=== PATIENT | male | born 1960 | race Caucasian/White ===

== ENCOUNTER → 2021-03-24 11:02 | Outpatient (CLI) | payer OTHER, SELFPAY ==
--- NOTE | 2021-03-24 | IMM_PTH ---
PATIENT: HANDY ASHLEY LOC: [facility] U#:[id number] AGE/SX: 65/M ROOM: RE03/24/[address]: Dr. Rodolfo Oneal MD : 1960 BED: DIS: SPEC #: [id number] RECD: 03/25/21 13:47 STATUS: BARBARA REQ #: [id number] TESSA: 03/24/21 00:[address]: Rodolfo Oneal DEPT: IMMUNOHISTOCHEMISTRY RECD BY: Lana Mayfield ENTERED: 03/25/21 13:48 SP TYPE: IMMUNO OTHR DR: Dr. Romeo Acevedo III, MD Tissues: C - PROSTATE RIGHT Procedures: P40 (add) 34BE12 (initial) PHYSICIAN & INSTITUTION [place] [address] SPECIMEN INFORMATION: Tissue Source: C - Right prostate, base, core biopsy Clinical Info: Elevated PSA Specimen Number: [id number] CPT code: 37302, 86640 METHODOLOGY: Deparaffinized sections of prefer/formalin-fixed tissue or PAP/DQ stained slides are incubated with monoclonal/polyclonal antibodies/oligonucleotide probes. Localization is made via biotin free immunoperoxidase method. Appropriate controls are performed and reacted as expected. Results on target cell population are indicated in the following table: RESULTS: ANTIBODY / CLONE RESULT Block C P40 (BC28) negative 34BE12 (34BE12) negative These tests were developed and their performance characteristics determined by [facility]. They may not have been cleared or approved by the U.S. Food and Drug Administration. The FDA has determined that such clearance or approval is not necessary. The above immunohistochemical/dualISH markers are ordered and reviewed by the Pathologist. INTERPRETATION: C. Right prostate, base, core biopsy: A minute focus of adenocarcinoma. SUSAN:graham 03/28/2021
--- NOTE | 2021-03-24 08:00 | PROSBIL_PTH ---
PATIENT: HANDY ASHLEY LOC: [facility] U#:[id number] AGE/SX: 65/M ROOM: RE03/24/[address]: Dr. Rodolfo Oneal MD : 1960 BED: DIS: SPEC #: [id number] RECD: 03/24/21 10:59 STATUS: BARBARA KAYLEE #: [id number] TESSA: 03/24/21 08:[address]: Rodolfo Oneal DEPT: SURGICAL PATHOLOGY RECD BY: Migdalia Joy ENTERED: 03/24/21 11:38 SP TYPE: PROST BX ZIA DR: Dr. Romeo Acevedo III, MD Tissues: A - PROSTATE RIGHT B - PROSTATE RIGHT C - PROSTATE RIGHT D - PROSTATE LEFT E - PROSTATE LEFT F - PROSTATE LEFT Procedures: PROSTATE BX HEADER OPERATION: Prostate biopsy PRE-OP DIAGNOSIS: Elevated PSA TISSUE SUBMITTED: A - Right apex, B - Right mid, C - Right base, D - Left apex, E - Left mid, F - Left base MICROSCOPIC DIAGNOSIS A. Right prostate, apex, core biopsy: Prostatic tissue, negative for malignancy. B. Right prostate, mid, core biopsy: Prostatic tissue, negative for malignancy. C. Right prostate, base, core biopsy: A minute focus of adenocarcinoma. Cherry grade: 3+3=6 Number of cores involved: 1/2 Proportion of tissue involved: <5% Perineural invasion: Not identified. Greatest tumor length: <0.1 cm See comment. D. Left prostate, apex, core biopsy: Prostatic tissue, negative for malignancy. E. Left prostate, mid, core biopsy: Prostatic tissue, negative for malignancy. F. Left prostate, base, core biopsy: Prostatic tissue, negative for malignancy. SJ:graham 03/25/2021 COMMENT C. Immunohistochemistry ([id number]) supports the above diagnosis. Case has been reviewed in consultation with Dr. Hodgson who concurs with the above diagnosis. IDC:AM MICROSCOPIC DESCRIPTION Slides are reviewed. GROSS DESCRIPTION A - Received is one container designated prostate, right apex. The specimen consists of two elongated fragments of light schreiber-white soft tissue each measuring 1 cm in length and 0.1 cm in diameter. The specimen is totally submitted in one cassette. B - Received is one container designated prostate, right mid. The specimen consists of two elongated fragments of light schreiber-white soft tissue each measuring 1.5 cm in length and 0.1 cm in diameter. The specimen is totally submitted in one cassette. C - Received is one container designated prostate, right base. The specimen consists of two elongated fragments of light schreiber-white soft tissue each measuring 1 cm in length and 0.1 cm in diameter. The specimen is totally submitted in one cassette. D - Received is one container designated prostate, left apex. The specimen consists of two elongated fragments of light schreiber-white soft tissue each measuring 1 cm in length and 0.1 cm in diameter. The specimen is totally submitted in one cassette. E - Received is one container designated prostate, left mid. The specimen consists of two elongated fragments of light schreiber-white soft tissue each measuring 1 cm in length and 0.1 cm in diameter. The specimen is totally submitted in one cassette. F - Received is one container designated prostate, left base. The specimen consists of two elongated fragments of light schreiber-white soft tissue each measuring 1 cm in length and 0.1 cm in diameter. The specimen is totally submitted in one cassette. / AM:rg 03/24/21 TC:0 CPT: 95694 x6
== END ==
PROVIDERS: PCP Family Medicine; Referring Provider Urology; Visit Provider Urology
DX: R97.20 Elevated prostate specific antigen [PSA] (principal)
CPT/HCPCS: 88305; 88341; 88342; G0416

== ENCOUNTER → 2021-06-23 | Outpatient (CLI) | payer OTHER, SELFPAY | END | disposition home or self-care (01) | LOC: LABSPEC 12:32 | PROVIDERS: Visit Provider Physician Assistant Medical | DX: Z11.52 Encounter for screening for COVID-19 (principal); U07.1 COVID-19 | CPT/HCPCS: 87635; U0003; U0005 ==

== ENCOUNTER 2023-05-11 07:07 | Day surgery (SDC) | payer OTHER, SELFPAY ==
--- NOTE | 2023-05-11 | GASB_PTH ---
PATIENT: HANDY ASHLEY LOC: EN U#:[id number] AGE/SX: 63/M ROOM: RE05/11/[address]: Dr. Antoine Acevedo MD : 1960 BED: DIS: 05/11/2023 SPEC #: [id number] RECD: 05/11/23 10:52 STATUS: BARBARA KAYLEE #: [id number] TESSA: 05/11/23 00:[address]: Antoine Acevedo DEPT: SURGICAL PATHOLOGY RECD BY: Parker Guevara ENTERED: 05/11/23 10:52 SP TYPE: Gastric Bx OTHR DR: Dr. Jarad Oliver MD Tissues: A - Duodenum, NOS B - Gastric mucous membrane C - Stomach, NOS D - Esophageal mucous membrane E - Ascending colon Procedures: Special Stain Group II Surgery Specimen Level IV Alcian Blue/PAS (control) HEADER OPERATION: Colonoscopy, EGD, biopsy PRE-OP DIAGNOSIS: GERD, screening TISSUE SUBMITTED: A - Duodenum biopsy, B - Antrum biopsy for H. pylori, C - Greater curvature polyp biopsy, D - Distal esophagus biopsy, E - Ascending polyp biopsy MICROSCOPIC DIAGNOSIS A. Duodenum, biopsy: No pathologic change. B. Gastric antrum, biopsy: Chronic gastritis. See comment. C. Greater curvature polyp, biopsy: Fundic gland polyp. D. Distal esophagus, biopsy: Gastroesophageal junctional mucosa with mild chronic inflammation. Focal changes of reflux. No evidence of goblet cell metaplasia. See comment. E. Ascending colon polyp, biopsy: Fragments of tubular adenoma. AM:graham 05/14/2023 COMMENT B. The results of immunohistochemistry for Helicobacter pylori will be reported separately ([id number]). MICROSCOPIC DESCRIPTION Slides are reviewed. GROSS DESCRIPTION A - Received in fixative is one container labeled with the patient's name and designated duodenum biopsy. The specimen consists of one irregular fragment of light schreiber soft tissue that measures 0.5 x 0.5 x 0.1 cm. The specimen is totally submitted in one cassette. B - Received in fixative is one container labeled with the patient's name and designated antrum biopsy. The specimen consists of one irregular fragment of light schreiber soft tissue that measures 0.5 x 0.5 x 0.1 cm. The specimen is totally submitted in one cassette. C - Received in fixative is one container labeled with the patient's name and designated greater curvature polyp. The specimen consists of one irregular fragment of light schreiber soft tissue that measures 0.6 x 0.6 x 0.1 cm. The specimen is totally submitted in one cassette. D - Received in fixative is one container labeled with the patient's name and designated distal esophagus. The specimen consists of two irregular fragments of light schreiber soft tissue that in aggregate measure 0.7 x 0.3 x 0.1 cm. The specimen is totally submitted in one cassette. E - Received in fixative is one container labeled with the patient's name and designated ascending colon polyp. The specimen consists of two irregular fragments of light schreiber soft tissue that in aggregate measure 0.8 x 0.2 x 0.1 cm. The specimen is totally submitted in one cassette. / AM:graham 05/11/2023 TC:3 CPT: 91457 x5, 05296
[2023-05-11 07:32] VITALS: BP 131/78; PULSE 74; RESP 16; TEMP 36.3; O2SAT 97; BMI 28.9
[2023-05-11] MEDS: Lactated Ringers 1,000 ML 15 ML IV (07:35)
--- NOTE | 2023-05-11 07:55 | HP.PCM_ITS ---
History and Physical Date of Admission: 05/11/23 isit Reasons: UPPER/LOWER SCOPE Chief Complaint: upper and lower scope Is patient in pain?: No Allergies No Known Allergies Allergy (Verified 03/29/23 14:43) Medications famotidine 20 mg tablet 20 mg PO DAILY 03/01/23 [History Confirmed 03/29/23] losartan 100 mg-hydrochlorothiazide 25 mg tablet 1 tab PO DAILY 03/01/23 [History Confirmed 03/29/23] PFSH Medical History GERD (gastroesophageal reflux disease) Hiatal hernia HTN (hypertension) MVP (mitral valve prolapse) Surgical History Hx of colonoscopy Hx of esophagogastroduodenoscopy Family History (Updated 03/29/23 @ 14:41 by Odette Mendoza) Mother Breast cancer Social History (Updated 03/29/23 @ 14:42 by Odette Mendoza) household members: spouse current occupational status: employed Smoking Status: Never smoker substance use type: does not use HPI HPI HPI: 62-year-old gentleman is referred for consideration of an endoscopic evaluation per Dr. Jarad Oliver and a written compromise surgical consult recommendations will return to him. The patient has been troubled by persistent cough and gastroesophageal reflux disease despite a head of bed elevation at night. He is also in need of a screening colonoscopy. 10 years prior he had a colonoscopy which apparently was normal and an EGD also performed at that time demonstrated a hiatal hernia and GERD. He is on famotidine and losartan hydrochlorothiazide medications. The patient notes occasional breakthrough episodes of reflux disease. Has not unexpected weight loss. No nausea or vomiting. No bright red blood per rectum or melena. He notes that his brother has a history of prostate cancer but no history of colon cancer in the family. He has not had any acute change in bowel habits. No ongoing primary health issues of concern. No history of DVT. ROS General General: No weight change, appetite, fatigue, colon cancer, breast cancer or weakness HEENT HEENT: Yes eye surgery; No difficulty swallowing, eye injury, swollen glands or hoarseness Endo Endocrine: No thyroid disease, diabetes mellitus, thyroid cancer, Hair loss, heat intolerance or cold intolerance Skin Skin: No rash or changing moles Musc Musculoskeletal: No back problems, arthritis, rheumatoid arthritis, gout or joint pain Cardio Cardiovascular: Yes murmur; No pacemaker, heart disease, atrial fibrillation, high blood pressure, heart attack, heart stent, palpitations, shortness of breat with exertion or chest pain Psych Psychiatric: No depression, anxiety or hearing voices Resp Respiratory: No shortness of breath, No sleep apnea, No cough, No COPD, No asthma, No emphysema and No wheezing Gastro Gastrointestinal: No abdominal pain, No nausea or vomiting, No diarrhea, No constipation, No blood in stool, Yes acid reflux, No hemorrhoids, No ulcers, No gallbladder problem and No black,tarry stools Gilbert Hematologic: No blood thinners, No blood disorders, No bleeding, No anemia and No blood clots Neuro Neurologic: No system reviewed and no additional complaints, except as documented, No as per HPI, No abnormal gait, No abnormal hearing, No abnormal movements, No abnormal speech, No behavioral changes, No burning sensations, No confusion, No convulsions, No disequilibrium, No dizziness, No localized weakness, No frequent falls, No headache(s), No lack of coordination, No loss of vision, No memory loss, No numbness, No other visual disturbances, No radicular pain, No restless legs, No sensory deficit, No syncope, No tingling, No tremor(s), No weakness and No other Exam Const General: cooperative, healthy appearing, comfortable and no acute distress [facility] Head: normal to inspection Eyes General: appearance normal, both eyes and all related structures Neck Neck: normal visual inspection Chest Chest palpation & inspection: normal inspection of the chest Resp Effort & Inspection: normal respiratory effort Auscultation: clear to auscultation bilaterally Cardio Rate: regular rate Rhythm: regular rhythm GI Inspection: normal to inspection Palpation: soft and no hepatosplenomegaly Musc Cervical Spine: normal cervical lordosis Skin General: no rashes or lesions noted Neuro General: patient alert, patient awake and patient oriented x3 Extrem General: no calf tenderness Psych Appearance: grossly normal Assessment and Plan Assessment and Plan (1) Screening for intestinal cancer: Status: Acute (2) GERD (gastroesophageal reflux disease): Status: Acute Qualifiers: Esophagitis presence: esophagitis presence not specified Qualified Code(s): K21.9 - Gastro-esophageal reflux disease without esophagitis Plan: I recommended the patient a combined esophagogastroduodenoscopy possible biopsy and colonoscopy possible biopsy or polypectomy as indicated. He is aware of the technique, benefit, risk, alternatives. He had an opportunity to ask and have questions answered. We will schedule and proceed at his discretion. I appreciate the opportunity of assisting with the surgical care. Copy: Dr. Jarad Acevedo M.D., F.A.C.S. I have examined the patient and the H&P has been reviewed. There are no clinical changes since date of exam. Antoine Acevedo M.D., F.A.C.S.
--- NOTE | 2023-05-11 08:15 | IMM_PTH ---
PATIENT: HANDY ASHLEY LOC: EN U#:[id number] AGE/SX: 63/M ROOM: RE05/11/[address]: Dr. Antoine Acevedo MD : 1960 BED: DIS: 05/11/2023 SPEC #: [id number] RECD: 05/11/23 14:51 STATUS: BARBARA REQ #: [id number] TESSA: 05/11/23 08:[address]: Antoine Acveedo DEPT: IMMUNOHISTOCHEMISTRY RECD BY: Lana Mayfield ENTERED: 05/11/23 14:53 SP TYPE: IMMUNO OTHR DR: Dr. Jarad Oliver MD Tissues: A - Stomach, NOS Procedures: H Pylori (initial) PHYSICIAN & [place] [address] SPECIMEN INFORMATION: Tissue Source: B - Antrum Clinical Info: GERD, screening Specimen Number: [id number] CPT code: 87480 METHODOLOGY: Deparaffinized sections of prefer/formalin-fixed tissue or PAP/DQ stained slides are incubated with monoclonal/polyclonal antibodies/oligonucleotide probes. Localization is made via biotin free immunoperoxidase method. Appropriate controls are performed and reacted as expected. Results on target cell population are indicated in the following table: RESULTS: ANTIBODY / CLONE RESULT Block B H Pylori (polyclonal) negative These tests were developed and their performance characteristics determined by [facility]. They may not have been cleared or approved by the U.S. Food and Drug Administration. The FDA has determined that such clearance or approval is not necessary. The above immunohistochemical/dualISH markers are ordered and reviewed by the Pathologist. INTERPRETATION: B. Antrum, biopsy: Negative for Helicobacter pylori organisms. AM:graham 05/14/2023
--- NOTE | 2023-05-11 08:42 | OP.CCLET_ITS ---
05/11/2023 Jarad Oliver [address] [place] [address] Re : Upper GI endoscopy procedure for Alejandro Bonilla Dear Dr. Oliver This procedure was performed on Thursday, May 11, 2023. My impressions and recommendations are as follows: Impressions : - LA Grade A reflux esophagitis with no bleeding. Biopsied Hiatal hernia. - Erythematous mucosa in the antrum. Biopsied. - Erythematous duodenopathy. Biopsied. - A few gastric polyps. Resected and retrieved. Recommendations : - Return to my office in 1 week. - Continue present medications. My findings are described in the full procedure note, which is enclosed. If I can be of further assistance, please feel free to contact me at Doctor phone number(s): Work: . Sincerely, Antoine Acevedo MD 05/11/2023 8:42:09 AM This report has been signed electronically.
--- NOTE | 2023-05-11 08:42 | OP.EGD_ITS ---
Patient Name: Alejandro Bonilla Procedure Date: 05/11/2023 7:55 AM Date of : 1960 Age: 63 Procedure: Upper GI endoscopy Indications: Esophageal reflux Providers: Antoine Acevedo MD Referring MD: Antoine Acevedo MD Medicines: See the Anesthesia note for documentation of the administered medications Complications: No immediate complications. Procedure: Pre-Anesthesia Assessment: - Prior to the procedure, a History and Physical was performed, and patient medications and allergies were reviewed. The patient's tolerance of previous anesthesia was also reviewed. The risks and benefits of the procedure and the sedation options and risks were discussed with the patient. All questions were answered, and informed consent was obtained. Prior Anticoagulants: The patient has taken no anticoagulant or antiplatelet agents. ASA Grade Assessment: II - A patient with mild systemic disease. After reviewing the risks and benefits, the patient was deemed in satisfactory condition to undergo the procedure. After obtaining informed consent, the endoscope was passed under direct vision. Throughout the procedure, the patient's blood pressure, pulse, and oxygen saturations were monitored continuously. The was introduced through the mouth, and advanced to the second part of duodenum. The upper GI endoscopy was accomplished without difficulty. The patient tolerated the procedure well. Scope In: 8:05:50 AM Scope Out: 8:14:00 AM Total Procedure Duration Time 0 hours 8 minutes 10 seconds Findings: LA Grade A (one or more mucosal breaks less than 5 mm, not extending between tops of 2 mucosal folds) esophagitis with no bleeding was found 40 cm from the incisors. Biopsies were taken with a cold forceps for histology. Diffuse mildly erythematous mucosa without bleeding was found in the gastric antrum. Biopsies were taken with a cold forceps for histology. Diffuse mildly erythematous mucosa without active bleeding and with no stigmata of bleeding was found in the duodenal bulb. Biopsies were taken with a cold forceps for histology. A few sessile polyps with no stigmata of recent bleeding were found on the greater curvature of the stomach. The polyp was removed with a cold biopsy forceps. Resection and retrieval were complete. A 2 cm hiatal hernia was present. Impression: - LA Grade A reflux esophagitis with no bleeding. Biopsied Hiatal hernia. - Erythematous mucosa in the antrum. Biopsied. - Erythematous duodenopathy. Biopsied. - A few gastric polyps. Resected and retrieved. Recommendation: - Return to my office in 1 week. - Continue present medications. Procedure Code(s): --- Professional --- 04978, Esophagogastroduodenoscopy, flexible, transoral; with biopsy, single or multiple Diagnosis Code(s): --- Professional --- K21.00, Gastro-esophageal reflux disease with esophagitis, without bleeding K31.89, Other diseases of stomach and duodenum K31.7, Polyp of stomach and duodenum CPT copyright 2021 [employer]. All rights reserved. The codes documented in this report are preliminary and upon isotope technician review may be revised to meet current compliance requirements. Antoine Acveedo MD 05/11/2023 8:42:09 AM This report has been signed electronically. Number of Addenda: 0 Note Initiated On: 05/11/2023 7:55 AM
--- NOTE | 2023-05-11 08:44 | OP.COLON_ITS ---
Patient Name: Aleajndro Bonilla Procedure Date: 05/11/2023 8:14 AM Date of : 1960 Age: 63 Procedure: Colonoscopy Indications: Screening for colorectal malignant neoplasm Providers: Antoine Acevedo MD Referring MD: Antoine Acevedo MD Medicines: See the Anesthesia note for documentation of the administered medications Patient Profile: Last Colonoscopy: 10 years ago. Complications: No immediate complications. Procedure: Pre-Anesthesia Assessment: - Prior to the procedure, a History and Physical was performed, and patient medications and allergies were reviewed. The patient's tolerance of previous anesthesia was also reviewed. The risks and benefits of the procedure and the sedation options and risks were discussed with the patient. All questions were answered, and informed consent was obtained. Prior Anticoagulants: The patient has taken no anticoagulant or antiplatelet agents. ASA Grade Assessment: II - A patient with mild systemic disease. After reviewing the risks and benefits, the patient was deemed in satisfactory condition to undergo the procedure. After I obtained informed consent, the scope was passed under direct vision. Throughout the procedure, the patient's blood pressure, pulse, and oxygen saturations were monitored continuously. The was introduced through the anus and advanced to the cecum, identified by appendiceal orifice and ileocecal valve. The colonoscopy was performed without difficulty. The patient tolerated the procedure well. The quality of the bowel preparation was good. The ileocecal valve and the appendiceal orifice were photographed. Scope In: 8:15:36 AM Scope Withdrawal Time 0 hours 15 minutes 4 seconds Scope Out: 8:35:18 AM Total Procedure Duration Time 0 hours 19 minutes 42 seconds Findings: Hemorrhoids were found on perianal exam. The digital rectal exam was normal. Pertinent negatives include normal prostate (size, shape, and consistency). A 6 mm polyp was found in the distal ascending colon. The polyp was sessile. The polyp was removed with a cold biopsy forceps. Resection and retrieval were complete. The exam was otherwise without abnormality. Impression: - Hemorrhoids found on perianal exam. - One 6 mm polyp in the distal ascending colon, removed with a cold biopsy forceps. Resected and retrieved. - The examination was otherwise normal. Recommendation: - Discharge patient to home. - Resume previous diet. - Continue present medications. - Repeat colonoscopy in 5 years for surveillance based on pathology results. - Telephone my office for pathology results in 1 week. Procedure Code(s): --- Professional --- 04411, Colonoscopy, flexible; with biopsy, single or multiple Diagnosis Code(s): --- Professional --- Z12.11, Encounter for screening for malignant neoplasm of colon K64.9, Unspecified hemorrhoids D12.2, Benign neoplasm of ascending colon CPT copyright 2021 [employer]. All rights reserved. The codes documented in this report are preliminary and upon construction contractor review may be revised to meet current compliance requirements. Antoine Acevedo MD 05/11/2023 8:44:27 AM This report has been signed electronically. Number of Addenda: 0 Note Initiated On: 05/11/2023 8:14 AM
[2023-05-11 08:45] VITALS: BP 127/77; BP 131/78; PULSE 72; RESP 16; TEMP 37.3; O2SAT 96
--- NOTE | 2023-05-11 08:45 | OP.CCLET_ITS ---
05/11/2023 Jarad Oliver [address] [place] [address] Re : Colonoscopy procedure for Alejandro Bonilla Dear Dr. Oliver This procedure was performed on Thursday, May 11, 2023. My impressions and recommendations are as follows: Impressions : - Hemorrhoids found on perianal exam. - One 6 mm polyp in the distal ascending colon, removed with a cold biopsy forceps. Resected and retrieved. - The examination was otherwise normal. Recommendations : - Discharge patient to home. - Resume previous diet. - Continue present medications. - Repeat colonoscopy in 5 years for surveillance based on pathology results. - Telephone my office for pathology results in 1 week. My findings are described in the full procedure note, which is enclosed. If I can be of further assistance, please feel free to contact me at Doctor phone number(s): Work: . Sincerely, Antoine Acevedo MD 05/11/2023 8:44:27 AM This report has been signed electronically.
[2023-05-11 08:50] VITALS: BP 121/78; BP 131/78; PULSE 70; RESP 16; O2SAT 98
[2023-05-11 08:55] VITALS: BP 119/70; BP 131/78; PULSE 68; RESP 16; O2SAT 98
[2023-05-11 09:00] VITALS: BP 118/70; BP 131/78; PULSE 68; RESP 16; TEMP 36.7; O2SAT 96
[2023-05-11 10:03] VITALS: BP 131/78
== END 2023-05-11 10:05 | disposition home or self-care (01) ==
LOC: EN 07:08 → AC 07:10
PROVIDERS: PCP Internal Medicine; Referring Provider Internal Medicine; Visit Provider Surgery
PROC: 0DJD8ZZ Inspection of Lower Intestinal Tract, Via Natural or Artificial Opening Endoscopic (ICD-10-PCS; CPT 45378; principal; 2023-05-11 08:10)
DX: Z12.11 Encounter for screening for malignant neoplasm of colon (principal); K31.7 Polyp of stomach and duodenum; K63.5 Polyp of colon; K64.9 Unspecified hemorrhoids; I10 Essential (primary) hypertension; K44.9 Diaphragmatic hernia without obstruction or gangrene; Z79.899 Other long term (current) drug therapy; K31.89 Other diseases of stomach and duodenum; K21.00 Gastro-esophageal reflux disease with esophagitis, without bleeding; K29.50 Unspecified chronic gastritis without bleeding
CPT/HCPCS: 43239; 45380; 88305; 88313; 88342; J7120; J2405

== ENCOUNTER → 2023-06-01 | Day surgery (SDC) | payer OTHER, SELFPAY ==
[2023-06-01 10:04] VITALS: BP 165/100; PULSE 70; RESP 16; TEMP 36.1; O2SAT 99
[2023-06-01] MEDS: Lidocaine Jelly 2% 20 ML Syringe (URO-JET) 1 APPLIC (10:15)
== END | disposition home or self-care (01) ==
LOC: EN 09:50
PROVIDERS: PCP Internal Medicine; Referring Provider Surgery; Visit Provider Surgery
PROC: F00ZJWZ Instrumental Swallowing and Oral Function Assessment using Swallowing Equipment (ICD-10-PCS; CPT 43235; principal; 2023-06-01 09:55)
DX: K21.9 Gastro-esophageal reflux disease without esophagitis (principal)
CPT/HCPCS: 91010

== ENCOUNTER 2023-08-14 05:19 | Day surgery (SDC) | payer OTHER, SELFPAY ==
--- NOTE | 2023-08-07 07:24 | EKG12_ITS ---
Test Reason : PRE OP Blood Pressure : / mmHG Vent. Rate : 064 BPM Atrial Rate : 064 BPM P-R Int : 162 ms QRS Dur : 140 ms QT Int : 434 ms P-R-T Axes : 036 -10 008 degrees QTc Int : 447 ms Normal sinus rhythm Right bundle branch block Abnormal ECG Confirmed by Raul Gallardo ([id number]), editorial assistant MILES VILLAFUERTE ([id number]) on 08/07/2023 1:50:21 PM Referred By: Antoine Acevedo Confirmed By:Raul Gallardo
[2023-08-07 07:55] LABS: Hematocrit 49.1 % (40-54); Hemoglobin 16.1 g/dL (13.0-16.5); Mean Corp Hgb Conc 32.8 g/dL (32-36); Mean Corpuscular Hgb 28.9 pg (27.0-32.0); Mean Corpuscular Volume 88.2 fL (80-94); Mean Platelet Vol. 10.6 fl (6.2-12.0); Platelet Count 181 K/mm3 (150-450); RBC Distribution Width CV 13.4 % (11.6-14.6); Red Blood Count 5.57 M/mm3 (4.6-6.2); White Blood Count 5.7 K/mm3 (4.4-11.0)
[2023-08-07 08:20] LABS: Anion Gap 5 (5-15); BUN 22 mg/dL (7-18); BUN/Creat Ratio 18.6 RATIO (10-20); Calcium,Total 9.5 mg/dL (8.5-10.1); Chloride 107 mmol/L (98-107); Creatinine, Serum 1.18 mg/dL (0.70-1.30); EST Glomerular Filtration Rate 66 mL/min (>60); Est Glom Filt Rate - Afr Amer 80 mL/min (>60); Glucose 154 mg/dL (74-106); Potassium 3.5 mmol/L (3.5-5.1); Sodium Level 142 mmol/L (136-145)
[2023-08-14] VITALS (11 sets, daily range): BP systolic 154–192; BP diastolic 79–99; PULSE 67–95; RESP 12–20; TEMP 35.9–37.1; O2SAT 90–98; BMI 30.2
--- OUTSIDE RECORDS SUMMARY | 2023-08-14 05:24 | XMS RPT_ITS | CCD ---
Author Name Unknown Address [address] [facility] [address] [place] [address] Organization [facility] Care Team Providers Care Underwriting Clerk Name Role Phone Jarad Jones MD Primary Care Provider [phone] JARAD JONES Attending Unavailable JARAD JONES Primary Care Unavailable JARAD JONES Attending Unavailable JARAD JONES Primary Care Unavailable POWER CASAS Referring Unavailable JARAD JONES Primary Care Unavailable POWER CASAS Referring Unavailable JARAD JONES Primary Care Unavailable Jarad Jones MD Primary Care Provider [phone] Medications Current Medications Medication Drug Class(es) Dates Sig (Normalized) Sig (Original) hydroCHLOROthiazide 25 mg oral tablet (4 sources) Thiazide Diuretic Start: 2 End: 3 take 1 tablet by mouth once daily hydroCHLOROthiazide (HYDRODIURIL, ESIDRIX) 25 mg tablet Indications: Primary hypertension Take 1 tablet by mouth once daily. 90 tablet 1 03/15/2022 07/27/2022 Discontinued (Changing Therapy/Dosage Form) Completed/Discontinued Medications Medication Drug Class(es) Dates Sig (Normalized) Sig (Original) famotidine 20 mg oral tablet (11 sources) Histamine-2 Receptor Antagonist take 1 tablet by mouth every other day famotidine (PEPCID) 20 mg tablet Take 20 mg by mouth. Take 1 tablet every other day. 0 Active Problems Active Problems Problem Classification Problem Date Documented Date Episodic/Chronic Cancer of prostate (14 sources) Malignant tumor of prostate; Translations: [Malignant neoplasm of prostate] Onset: 03-24-2021 07-27-2021 Chronic Conduction disorders (13 sources) Complete right bundle branch block; Translations: [Unspecified right bundle-branch block] Onset: 01-25-2017 07-27-2021 Chronic Disorders of lipid metabolism (15 sources) Mixed hyperlipidemia; Translations: [Mixed hyperlipidemia] Onset: 11-28-2021 Chronic Esophageal disorders (13 sources) Gastroesophageal reflux disease; Translations: [Gastro-esophageal reflux disease without esophagitis] Onset: 04-20-2008 04-20-2008 Chronic Essential hypertension (17 sources) Essential hypertension; Translations: [Essential (primary) hypertension] Onset: 11-28-2021 Chronic Heart valve disorders (18 sources) Mitral valve regurgitation; Translations: [Nonrheumatic mitral (valve) insufficiency] Onset: 08-25-2021 09-07-2021 Chronic Hyperplasia of prostate (13 sources) Benign prostatic hyperplasia; Translations: [Benign prostatic hyperplasia without lower urinary tract symptoms] Onset: 07-24-2011 07-24-2011 Chronic Other male genital disorders (5 sources) Induratio penis plastica; Translations: [Induration penis plastica] Onset: 09-21-2017 09-21-2017 Chronic Other nutritional; endocrine; and metabolic disorders (10 sources) Cholesterol level - finding; Translations: [Lipoprotein deficiency] Onset: 02-17-2013 02-17-2013 Chronic Other nutritional; endocrine; and metabolic disorders (15 sources) Obese class I; Translations: [Obesity, unspecified] Onset: 07-27-2021 07-27-2021 Chronic Other screening for suspected conditions (not mental disorders or infectious disease) (8 sources) Raised prostate specific antigen; Translations: [Elevated prostate specific antigen [PSA]] Onset: 02-17-2013 02-17-2013 Episodic Past or Other Problems Problem Classification Problem Date Documented Da te Episodic/Chronic Heart valve disorders (6 sources) Heart murmur; Translations: [Cardiac murmur, unspecified] Onset: 07-27-2021 07-27-2021 Episodic Other and unspecified benign neoplasm (2 sources) Tubular adenoma of colon; Translations: [Benign neoplasm of colon, unspecified] Onset: 03-26-2023 08-01-2023 Episodic Other circulatory disease (6 sources) Elevated blood pressure; Translations: [Elevated blood-pressure reading, without diagnosis of hypertension] Onset: 07-27-2021 07-27-2021 Episodic Other male genital disorders (5 sources) Cyst of epididymis; Translations: [Cyst of epididymis] Onset: 09-21-2017 09-21-2017 Episodic Residual codes; unclassified (5 sources) Family history of prostate cancer; Translations: [Family history of malignant neoplasm of prostate] Onset: 12-17-2014 12-17-2014 Episodic Results Test Name Value Interpretation Reference Range Facil ity Vital Signs Date Time Vital Sign Value Performing Clinician Faci lity 08-13-2023 14:07-0500 Body weight 98.43 kg Power Casas MD Work Phone: [facility] 08-13-2023 14:07-0500 Diastolic blood pressure 83 mm[Hg] Power Casas MD Work Phone: [facility] 08-13-2023 14:07-0500 Heart rate 79 /min Power Casas MD Work Phone: [facility] 08-13-2023 14:07-0500 SaO2% (BldA) [Mass fraction] 97 % Power Casas MD Work Phone: [facility] 08-13-2023 14:07-0500 Systolic blood pressure 135 mm[Hg] Power Casas MD Work Phone: [facility] 01-25-2023 08:48-0400 Body weight 96.16 kg Jarad Jones MD Work Phone: [facility] 01-25-2023 08:48-0400 Diastolic blood pressure 68 mm[Hg] Jarad Jones MD Work Phone: [facility] 01-25-2023 08:48-0400 Heart rate 64 /min Jarad Jones MD Work Phone: [facility] 01-25-2023 08:48-0400 Respiratory rate 16 /min Jarad Jones MD Work Phone: [facility] 01-25-2023 08:48-0400 Systolic blood pressure 128 mm[Hg] Jarad Jones MD Work Phone: [facility] 07-31-2022 14:13-0500 Body weight 99.79 kg Power Casas MD Work Phone: [facility] 07-31-2022 14:13-0500 Diastolic blood pressure 76 mm[Hg] Power Casas MD Work Phone: [facility] 07-31-2022 14:13-0500 Heart rate 94 /min Power Casas MD Work Phone: [facility] 07-31-2022 14:13-0500 SaO2% (BldA) [Mass fraction] 97 % Power Casas MD Work Phone: [facility] 07-31-2022 14:13-0500 Systolic blood pressure 130 mm[Hg] Power Casas MD Work Phone: [facility] 07-27-2022 08:28-0500 Diastolic blood pressure 79 mm[Hg] Jarad Jones MD Work Phone: [facility] 07-27-2022 08:28-0500 Heart rate 70 /min Jarad Jones MD Work Phone: [facility] 07-27-2022 08:28-0500 Systolic blood pressure 130 mm[Hg] Jarad Jones MD Work Phone: [facility] 07-27-2022 08:05-0500 Body height 177.8 cm Jarad Jones MD Work Phone: [facility] 07-27-2022 08:05-0500 Body temperature 96.8 [degF] Jarad Jones MD Work Phone: [facility] 07-27-2022 08:05-0500 Body weight 99.34 kg Jarad Jones MD Work Phone: [facility] 07-27-2022 08:05-0500 Respiratory rate 16 /min Jarad Jones MD Work Phone: [facility] 01-23-2022 12:41-0400 Diastolic blood pressure 82 mm[Hg] Jarad Jones MD Work Phone: [facility] 01-23-2022 12:41-0400 Heart rate 76 /min Jarad Jones MD Work Phone: [facility] 01-23-2022 12:41-0400 Systolic blood pressure 138 mm[Hg] Jarad Jones MD Work Phone: [facility] 01-23-2022 12:36-0400 Body temperature 97.3 [degF] Jarad Jones MD Work Phone: [facility] 01-23-2022 12:36-0400 Body weight 97.7 kg Jarad Jones MD Work Phone: [facility] 01-23-2022 12:36-0400 Respiratory rate 16 /min Jarad Jones MD Work Phone: [facility] 11-28-2021 08:26-0400 Body weight 99.34 kg Lupe Jayde PSYCH ARNP.EXHIBIT SPECIALIST Work Phone: [facility] 11-28-2021 08:26-0400 Diastolic blood pressure 72 mm[Hg] Lupe Jayde PSYCH ARNP.EXHIBIT SPECIALIST Work Phone: [facility] 11-28-2021 08:26-0400 Heart rate 77 /min Lupe Jayde PSYCH ARNP.EXHIBIT SPECIALIST Work Phone: [facility] 11-28-2021 08:26-0400 Respiratory rate 20 /min Lupe Jayde PSYCH ARNP.EXHIBIT SPECIALIST Work Phone: [facility] 11-28-2021 08:26-0400 Systolic blood pressure 154 mm[Hg] Lupe Jayde PSYCH ARNP.EXHIBIT SPECIALIST Work Phone: [facility] Encounters Encounter Date Encounter Type Care Provider Facility Start: 08-13-2023 End: 08-13-2023 Patient encounter procedure Power Casas MD Work Phone: Cardiology Procedures Date Procedure Procedure Detail Performing Clinician Start: 05-11-2023 Colonoscopy Jarad Solis MD Work Phone: Start: 08-08-2021 Lipid 1996 panel - S bear or Plasma Jarad Jones MD Work Phone: Start: 07-27-2021 Adult depression scr eening assessment Power Casas MD Work Phone: Start: 03-26-2013 Colonoscopy Power lucero MD Work Phone: Plan of Treatment Date Care Activity Detail Author Start: 05-11-2028 Screening for malign ant neoplasm of colon [facility] Start: 08-08-2026 Lipid panel Lipid Screening [facility] Start: 08-08-2026 LIPID SCREEN LIPID SCREEN [facility] Start: 08-08-2026 PROSTATE CANCER SCRE ENING DISCUSSION PROSTATE CANCER SCREENING DISCUSSION [facility] Start: 08-08-2026 Prostate specific an tigen measurement Prostate Cancer Screening Discussion [facility] Start: 04-08-2025 Urine microalbumin profile [facility] Start: 08-08-2024 DIABETES SCREEN DIABETES SCREEN [facility] Start: 08-08-2024 Diabetes Screening Diabetes Screenin g [facility] Start: 08-01-2024 Annual PCP Team Derivatives Trader bradley Disease Visit Annual PCP Team Chronic Disease Visit [facility] Start: 01-26-2024 ANNUAL PCP TEAM CUSTOMER TRAINER BRADLEY DISEASE VISIT ANNUAL PCP TEAM CHRONIC DISEASE VISIT [facility] Start: 01-26-2024 BP CONTROLLED (<130/80) BP CONTROLLE D (<130/80) [facility] Start: 12-23-2023 Influenza vaccination Influenza Vacc ine (#1) [facility] Immunizations Immunization Date Immunization Notes Care Provider Fa cility 10-23-2022 zoster vaccine recombinant Jarad Jones MD Work Phone: [facility] Work Phone: 07-06-2022 zoster vaccine recombinant Jarad Jones MD Work Phone: [facility] Work Phone: 04-25-2021 influenza, seasonal, injectable Power Casas MD Work Phone: [facility] Work Phone: 04-25-2021 influenza virus vaccine, unspecified formulation Jarad Jones MD Work Phone: [facility] 04-09-2017 influenza, seasonal, injectable Power Casas MD Work Phone: [facility] 04-08-2015 tetanus toxoid, redu giselle diphtheria toxoid, and acellular pertussis vaccine, adsorbed Power Casas MD Work Phone: [facility] 07-07-1991 diphtheria and tetan us toxoids, adsorbed for pediatric use Power Casas MD Work Phone: [facility] Payers Date Payer Category Payer Private Health Insurance [id number] 2013 Private Health Insurance [employer] A ETNA CHOICE POS II [id number] 2013-Present [phone] [address] [place] [address] POS [id number] 2013 Private Health Insurance [id number] 2013 Private Health Insurance [id number] Social History Date Type Detail Facility Start: 09-21-2017 End: 07-27-2022 Tobacco smoking status NHIS Never smoked tobacco [facility] Start: 09-07-2021 End: 08-13-2023 Alcohol intake Current drinker of alcohol (finding) [facility] Start: 07-27-2021 End: 07-27-2022 History SDOH Alcohol Frequency 4 [facility] Start: 07-27-2021 End: 07-27-2022 History SDOH Alcohol Std Drinks 1 [facility] Start: 07-27-2021 End: 07-27-2022 History SDOH Social Connections Phone 3 [facility] Start: 07-27-2021 History SDOH Social Connections Get Together 5 [facility] Start: 07-27-2021 History SDOH Social Connections Membership 2 [facility] Start: 07-27-2021 End: 07-27-2022 History SDOH Physical Activity MPS 7 [facility] Start: 1960 Sex Assigned At Not on file [facility] Start: 08-29-2021 End: 01-23-2022 Exposure to SARS-CoV-2 (event) Not sure [facility] Start: 09-21-2017 End: 07-27-2022 Tobacco use and exposure Smokeless tobacco non-user [facility] Start: 07-27-2022 End: 01-25-2023 Alcohol intake [facility] Start: 07-27-2022 Alcohol Comment 3 x per week [facility] Start: 07-27-2021 End: 01-25-2023 Social connection and isolation panel [facility] Do you belong to any clubs or organizations such as cheondoism groups, unions, fraternal or athletic groups, or school groups? No [facility] Are you now , , , , never or living with a partner? [facility] How often to you hav e a drink containing alcohol? 2-3 time sa week [facility] Work Phone: How many standard dr inks containing alcohol do you have on a typical day? 1 or 2 [facility] Work Phone: How often do you hav e 6 or more drinks on 1 occasion? Never [facility] Work Phone: How hard is it for y ou to pay for the very basics like food, housing, medical care, and heating Not hard at all [facility] Do you feel stress - tense, restless, nervous, or anxious, or unable to sleep at night because your mind is troubled all the time - these days [OSQ] Not at all [facility] Work Phone: (I/We) worried wheth er (my/our) food would run out before (I/we) got money to buy more. Never true [facility] Clinical Notes 04-08-2015 to 08-13-2023 Power Casas MD - 08/13/2023 2:29 PM ESTTelephone Encounter - Melani Ross RN - 08/03/2023 4:13 PM ESTPatient Jarad Gonzalez MD - 01/25/2023 9:03 AM EDT Note Date & Type Note Facility 08-13-2023 History of Present illness Narrative Images from the original note were not included. Power Casas MD Interventional Cardiology [address] [place] [phone] [id number] Chief Complaint Patient presents with: Follow Up HISTORY OF PRESENT ILLNESS: Mr. Bonilla is a 63 year old male seen in my office for follow-up patient established history of severe mitral regurgitation with mitral valve prolapse P2 prolapse and 4+ MR Patient is completely asymptomatic denies symptoms sign of congestive heart failure no angina physical activity and tolerance is excellent echocardiography revealed severe mitral regurgitation with regurgitant orifice area of 0.62 cm Left ventricular end-diastolic dimension is 4.8 cm and left ventricular end systolic diameter is 3.1 cm Patient underwent stress test July 2022 exercised on Kamran protocol for 7 minutes and 34 seconds with no evidence of ischemia adequate heart rate achieved 88% of maximum predicted heart rate normal left ventricular size with mild LVH Patient is undergoing surgery tomorrow for hiatal hernia he is cleared for his surgery with moderate risk of cardiac event To be watchful for any evidence of congestive heart failure and fluid assessment and management Cardiac Risk Factors age (male over 45, female over 55), hypertension PAST MEDICAL HISTORY Diagnosis Date BPH (benign prostatic hyperplasia) 07/24/2011 Complete right bundle branch block (RBBB) 01/25/2017 COVID-19 06/25/2021 and 06/08/2020 Elevated PSA 2018 Epididymal cyst 09/21/2017 HTN (hypertension) Hypertensive heart disease Low HDL (under 40) 02/17/2013 Mitral valve insufficiency 08/25/2021 Mitral valve regurgitation 08/25/2021 Mixed hyperlipidemia 11/28/2021 Obesity 07/24/2011 Obesity, Class I, BMI 30-34.9 07/27/2021 Peyronie disease 09/21/2017 2015 Prostate cancer (HCC) 03/24/2021 Tubular adenoma of colon 03/26/2023 PAST SURGICAL HISTORY Procedure Laterality Date COLONOSCOPY FLX DX W/COLLJ SPEC WHEN PFRMD 03/26/2013 Colonoscopy ESOPHAGOGASTRODUODENOSCOPY TRANSORAL DIAGNOSTIC 03/26/2013 EGD PROSTATE BIOPSY 02/2021 VASECTOMY UNI/BI SPX W/POSTOP SEMEN EXAMS FAMILY HISTORY Problem Relation Age of Onset Breast Cancer Mother Dementia Mother Diabetes Father 80 other (colon polyps) Father Prostate Cancer Brother None Brother Social History Tobacco Use Smoking status: Never Smokeless tobacco: Never Substance Use Topics Alcohol use: Yes Alcohol/week: 3.0 standard drinks of alcohol Types: 3 Standard drinks or equivalent per week Comment: 3 x per week Drug use: No ALLERGIES No Known Allergies Medications: Current Outpatient Medications Medication Sig Dispense Refill losartan-hydroCHLOROthiazide (HYZAAR) 100-25 mg per tablet Take 1 tablet by mouth once daily. 90 tablet 3 omeprazole (PRILOSEC) 40 mg capsule Take 40 mg by mouth. Take 1 tablet every other day. famotidine (PEPCID) 20 mg tablet Take 20 mg by mouth. Take 1 tablet every other day. Current Facility-Administered Medications Medication Dose Route Frequency Provider Last Rate Last Admin perflutren lipid microspheres 1.3 mL in NaCl (PF) 0.9% 10 mL injection (DEFINITY) INTRAVENOUS DIRECTED PRN Power Casas MD sodium chloride 0.9 % (flush) 10 mL (BD POSIFLUSH) 10 mL INTRAVENOUS DIRECTED PRPower Ash MD Review of Systems Constitutional: Negative for chills, diaphoresis, fever, malaise/fatigue and weight loss. HENT: Negative for congestion, ear discharge, ear pain, hearing loss, nosebleeds, sinus pain, sore throat and tinnitus. Eyes: Negative for blurred vision, double vision, photophobia, pain, discharge and redness. Respiratory: Negative for cough, hemoptysis, sputum production, shortness of breath, wheezing and stridor. Cardiovascular: Negative for chest pain, palpitations, orthopnea, claudication, leg swelling and PND. Gastrointestinal: Negative for abdominal pain, blood in stool, constipation, diarrhea, heartburn, melena, nausea and vomiting. Genitourinary: Negative for dysuria, flank pain, frequency, hematuria and urgency. Musculoskeletal: Negative for back pain, falls, joint pain, myalgias and neck pain. Skin: Negative for itching and rash. Neurological: Negative for dizziness, tingling, tremors, sensory change, speech change, focal weakness, seizures, loss of consciousness, weakness and headaches. Endo/Heme/Allergies: Negative for environmental allergies and polydipsia. Does not bruise/bleed easily. Psychiatric/Behavioral: Negative for depression, hallucinations, memory loss, substance abuse and suicidal ideas. The patient is not nervous/anxious and does not have insomnia. Physical Examination: Vitals:BP 135/83 Pulse 79 Wt 217 lb (98.4kg) SpO2 97% BP w/Orthostatic Vitals Date and Time Orthostatic BP Orthostatic Pulse BP Pulse BP Position BP Site BP Cuff Size 08/13/23 1407 -- -- 135/83 79 Sitting Right Arm Large Adult Last 2 Encounter Wt Readings: Date: Wt: 08/13/2023 98.4 kg (217 lb) 08/01/2023 97.5 kg (215 lb) Physical Exam Constitutional: General: He is not in acute distress. Appearance: He is not diaphoretic. HENT: Head: Normocephalic and atraumatic. Right Ear: External ear normal. Left Ear: External ear normal. Nose: Nose normal. Mouth/Throat: Pharynx: Oropharynx is clear. Eyes: General: Right eye: No discharge. Left eye: No discharge. Conjunctiva/sclera: Conjunctivae normal. Pupils: Pupils are equal, round, and reactive to light. Cardiovascular: Rate and Rhythm: Normal rate and regular rhythm. Heart sounds: S1 normal and S2 normal. Murmur heard. No friction rub. No gallop. No S3 or S4 sounds. Pulmonary: Effort: Pulmonary effort is normal. No respiratory distress. Breath sounds: Normal breath sounds. No wheezing or rales. Chest: Chest wall: No tenderness. Musculoskeletal: General: Normal range of motion. Cervical back: Normal range of motion and neck supple. Skin: General: Skin is warm and dry. Neurological: Mental Status: He is alert and oriented to person, place, and time. Psychiatric: Mood and Affect: Mood normal. Thought Content: Thought content normal. Pertinent Labs: CBC: No results found for: HB , HCT , WBC , PLT BMP: No results found for: GLUC , K , NA , CHLOR , CO2 , CREAT , BUN , ANION , CA INR: Lipid Profile: Cholesterol, Total Date Value Ref Range Status 03/14/2014 196 100 - 199 mg/dL Final HDL Cholesterol Date Value Ref Range Status 03/14/2014 35 (L) >45 mg/dL Final LDL Cholesterol Date Value Ref Range Status 03/14/2014 136 (H) 60 - 129 mg/dL Final Triglyceride Date Value Ref Range Status 03/14/2014 125 30 - 149 mg/dL Final Hemoglobin A1C: No results found for: HGBA1C TSH: No results found for: TSHREFL Prior Cardiac Testing Echo Assessment and Plan: 63 years old gentleman with severe mitral regurgitation due to P2 mitral valve prolapse ASSESSMENT/PLAN: 1. Mitral valve disorder - ICD9: 394.9, ICD10: I05.9 (primary diagnosis) Severe mitral regurgitation Remained asymptomatic Continue clinical observation repeat echo and next few weeks - ECHO - PERFLUTREN LIPID MICROSPHERES 1.1 MG/ML INJECTION IN NS 10 ML - SODIUM CHLORIDE 0.9 % (FLUSH) INJECTION SYRINGE 2. Preoperative examination - ICD9: V72.84, ICD10: Z01.818 Stable cardiac conditions cleared for his hiatal hernia surgery with mild risk of cardiac event Close assessment of fluid management signs and symptoms of congestive heart failure Power Casas MD Follow up plannin months Electronically signed by Power Casas MD on August 13, 2023, 2:29 PM The above note was partially created using a dictation recognition software. A reasonable attempt has been made to correct any errors. documented in this encounter [facility] 08-03-2023 Miscellaneous Notes Patient has been identified by name and date of : Yes, Melani Ross RN Date 08/03/2023 Time 4:14 pm Patient phones for refill(s): Requested Prescriptions Pending Prescriptions Disp Refills losartan-hydroCHLOROthiazide (HYZAAR) 100-25 mg per tablet 90 tablet 3 Sig: Take 1 tablet by mouth once daily. Date of last office visit in primary care: 08/01/2023 Date of next office visit in primary care: 01/30/2024 Patient reports because of insurance prescription needs to be sent to [facility]. Please advise. Thank you. Melani Ross RN. documented in this encounter [facility] 08-01-2023 Note HNO ID: [id number] Author: JARAD JONES MD Service: ? Author Type: Physician Type: Progress Notes Filed: 08/01/2023 09:42 Note Text: This note was created using NoteWriter. Subjective Patient presents with: Yearly Exam F/U 6 months Alejandro Bonilla is a 63 year old male. He felt well, and his hypertension was historically controlled. He had further workup of GERD and hiatal hernia by Dr. Acevedo, and he was scheduled for laparoscopic Silvestre funduplication this . He had his EGD and colonoscopy last March, and a tubular adenoma of the colon was found. [facility] He sees Dr. Casas for cardiology, Dr. Oneal for urology, Dr. Brumfield for dermatology, Dr. Geller for ophthalmology, and Dr. Acevedo for surgery. Review of Systems Constitutional: Negative for fatigue, fever and unexpected weight change. HENT: Negative for congestion and sore throat. Eyes: Negative for visual disturbance. Respiratory: Positive for cough. Negative for chest tightness, shortness of breath and wheezing. From acid reflux Cardiovascular: Negative for chest pain, palpitations and leg swelling. Gastrointestinal: Negative for abdominal pain, constipation, diarrhea, nausea and vomiting. Genitourinary: Negative for difficulty urinating and dysuria. Musculoskeletal: Negative for arthralgias and back pain. Skin: Negative for color change. Neurological: Negative for dizziness and headaches. PAST MEDICAL HISTORY Diagnosis Date BPH (benign prostatic hyperplasia) 07/24/2011 Complete right bundle branch block (RBBB) 01/25/2017 COVID-19 06/25/2021 and 06/08/2020 Elevated PSA 2018 Epididymal cyst 09/21/2017 HTN (hypertension) Hypertensive heart disease Low HDL (under 40) 02/17/2013 Mitral valve insufficiency 08/25/2021 Mitral valve regurgitation 08/25/2021 Mixed hyperlipidemia 11/28/2021 Obesity 07/24/2011 Obesity, Class I, BMI 30-34.9 07/27/2021 Peyronie disease 09/21/2017 2015 Prostate cancer (HCC) 03/24/2021 Tubular adenoma of colon 03/26/2023 PAST SURGICAL HISTORY Procedure Laterality Date COLONOSCOPY FLX DX W/COLLJ SPEC WHEN PFRMD 03/26/2013 Colonoscopy ESOPHAGOGASTRODUODENOSCOPY TRANSORAL DIAGNOSTIC 03/26/2013 EGD PROSTATE BIOPSY 02/2021 VASECTOMY UNI/BI SPX W/POSTOP SEMEN EXAMS FAMILY HISTORY Problem Relation Age of Onset Breast Cancer Mother Dementia Mother Diabetes Father 80 other (colon polyps) Father Prostate Cancer Brother None Brother Social History Tobacco Use Smoking status: Never Smokeless tobacco: Never Substance Use Topics Alcohol use: Yes Alcohol/week: 3.0 standard drinks of alcohol Types: 3 Standard drinks or equivalent per week Comment: 3 x per week Drug use: No ALLERGIES No Known Allergies Current Outpatient Medications Medication Sig omeprazole (PRILOSEC) 40 mg capsule Take 40 mg by mouth. Take 1 tablet every other day. famotidine (PEPCID) 20 mg tablet Take 20 mg by mouth. Take 1 tablet every other day. losartan-hydroCHLOROthiazide (HYZAAR) 100-25 mg per tablet Take 1 tablet by mouth once daily. No current facility-administered medications for this visit. Objective BP 137/82 (BP Site: Left Arm, BP Position: Sitting, BP Cuff Size: Large Adult) Pulse 69 Temp 36.6 ?C (97.8 ?F) (Temporal) Ht 178.4 cm (5' 10.25 ) Wt 97.5 kg (215 lb) BMI 30.63 kg/m? Physical Exam Constitutional: Appearance: Normal appearance. HENT: Head: Normocephalic. Nose: Nose normal. Eyes: Extraocular Movements: Extraocular movements intact. Conjunctiva/sclera: Conjunctivae normal. Neck: Vascular: No carotid bruit. Cardiovascular: Pulses: Normal pulses. Heart sounds: S1 normal. Murmur heard. Systolic murmur is present with a grade of 1/6. Diastolic murmur is present with a grade of 1/4. Pulmonary: Effort: No respiratory distress. Breath sounds: No wheezing or rales. Abdominal: General: There is no distension. Palpations: Abdomen is soft. There is no mass. Tenderness: There is no abdominal tenderness. Musculoskeletal: General: Normal range of motion. Right lower leg: No edema. Left lower leg: No edema. Lymphadenopathy: Cervical: No cervical adenopathy. Neurological: General: No focal deficit present. Mental Status: He is alert. Depression Screening PHQ-2 Score 08/01/2023 0 Depression screening tool completed and reviewed. Based on score and interview, patient is not at risk for depression. Screening tool discussed with patient, and I recommended no further intervention at this time. Test results pertinent to today's visit were reviewed and discussed with the patient. Assessment and Plan 1. Routine medical exam - ICD9: V70.0, ICD10: Z00.00 (primary diagnosis) - Counseled on healthy diet and regular exercise - Vaccines recommended: Prevnar 20, RSV vaccine. Patient will review VIS. 2. Primary hypertension - ICD9: 401.9, ICD10: I10 - Controlled - C (more content not included)... [facility] 01-25-2023 Note HNO ID: [id number] Author: Jarad Jones MD Service: ? Author Type: Physician Type: Progress Notes Filed: 01/25/2023 9:26 AM Note Text: This note was created using [employer]. Subjective Alejandro Bonilla is a 62 year old male. He was doing well. Hypertension was controlled. Mitral insufficiency was asymptomatic and monitored. He will be due for colonoscopy this fall. He will call back with decision to do open access here in [facility] or be referred to another endoscopist. Review of Systems Constitutional: Negative for fatigue. Respiratory: Negative for shortness of breath. Cardiovascular: Negative for chest pain, palpitations and leg swelling. Gastrointestinal: Negative. Genitourinary: Negative for difficulty urinating. Neurological: Negative for dizziness and headaches. ACTIVE PROBLEM LIST Esophageal Reflux Bph (Benign Prostatic Hyperplasia) Prostate Cancer (Hcc) Obesity, Class I, Bmi 30-34.9 Complete Right Bundle Branch Block (Rbbb) Mitral Valve Insufficiency Primary Hypertension Mixed Hyperlipidemia Social History Tobacco Use Smoking status: Never Smokeless tobacco: Never Substance Use Topics Alcohol use: Yes Alcohol/week: 3.0 standard drinks of alcohol Types: 3 Standard drinks or equivalent per week Comment: 3 x per week Drug use: No Current Outpatient Medications Medication Sig losartan-hydroCHLOROthiazide (HYZAAR) 100-25 mg per tablet Take 1 tablet by mouth once daily. famotidine (PEPCID) 20 mg tablet Take 20 mg by mouth once daily. Current Facility-Administered Medications Medication Dose Route Frequency perflutren lipid microspheres 1.3 mL in NaCl (PF) 0.9% 10 mL injection (DEFINITY) INTRAVENOUS DIRECTED PRN sodium chloride 0.9 % (flush) 10 mL (BD POSIFLUSH) 10 mL INTRAVENOUS DIRECTED PRN perflutren lipid microspheres 1.3 mL in NaCl (PF) 0.9% 10 mL injection (DEFINITY) INTRAVENOUS DIRECTED PRN sodium chloride 0.9 % (flush) 10 mL (BD POSIFLUSH) 10 mL INTRAVENOUS DIRECTED PRN perflutren lipid microspheres 1.3 mL in NaCl (PF) 0.9% 10 mL injection (DEFINITY) INTRAVENOUS DIRECTED PRN sodium chloride 0.9 % (flush) 10 mL (BD POSIFLUSH) 10 mL INTRAVENOUS DIRECTED PRN Objective BP 128/68 (BP Site: Left Arm, BP Position: Sitting, BP Cuff Size: Large Adult) Pulse 64 Resp 16 Wt 96.2 kg (212 lb) BMI 30.42 kg/m? Physical Exam Cardiovascular: Rate and Rhythm: Normal rate and regular rhythm. Heart sounds: Murmur heard. Systolic murmur is present with a grade of 2/6. Diastolic murmur is present. Comments: LSB and apex. Pulmonary: Breath sounds: Normal breath sounds. Musculoskeletal: Right lower leg: No edema. Left lower leg: No edema. Neurological: Mental Status: He is alert. Assessment and Plan 1. Primary hypertension - ICD9: 401.9, ICD10: I10 (primary diagnosis) - Controlled - CBC 2. Special screening for malignant neoplasms, colon - ICD9: V76.51, ICD10: Z12.11 Options discussed, and he will call with decision. Open access here or referral to non [facility] endoscopist. 3. Mixed hyperlipidemia - ICD9: 272.2, ICD10: E78.2 - Controlled - COMP METABOLIC PANEL - LIPID PANEL BASIC 4. Mitral valve insufficiency, unspecified etiology - ICD9: 424.0, ICD10: I34.[address] Casas. 5. Prostate cancer (HCC) - ICD9: 185, ICD10: C61 [address] Dr[address] Oneal. - PSA/PROSTSPECAG DIAG Jarad Jones MD [facility] 01-25-2023 Note HNO ID: [id number] Author: Kenna Boyer LPN Service: ? Author Type: ? Type: Progress Notes Filed: 01/25/2023 9:26 AM Note Text: [facility] OPEN ACCESS QUESTIONNAIRE 1. Are you currently having any new or unusual stomach/gastrointestinal issues at this time such as constipation, diarrhea, abdominal pain, rectal bleeding etc?No 2. Do you have any difficulty swallowing? No 3. Do you have any implanted devices such as a defibrillator, pacemaker, cardiac stents or deep brain stimulator? No 4. Do you take any Blood thinners such as Coumadin, Plavix, Xarelto, Eliquis, Brilinta or any other blood thinner? No 5. Do you have any new or past cardiac (heart) or pulmonary (lung) issues? No 6. Do you currently use any oxygen? No 7. Have you been hospitalized in the past 6 weeks? No 8. Have you had difficulty with anesthesia previously re: Difficult intubation? No Other difficulty or allergic reaction to anesthesia other than post op N/V? No 9. Are you on dialysis? No 10. Do you have any bleeding disorders such as hemophilia or Factor 5? No 11. Are you an Insulin Dependent Diabetic? No IF ANY OF THE TOP ELEVEN QUESTIONS ARE ANSWERED YES PLEASE SCHEDULE THE PATIENT FOR A CONSULT. advised 12. Is the patient's BMI 40 or greater? No:There is no height or weight on file to calculate BMI.. 13. Do you take any narcotics or anti-Anxiety medications? No 14. Do you use any illegal or recreational drugs including marijuana? No 15. Any alcohol use: YES: What type of alcohol, how much and how often do you drink? : Two (2) twelve ounce beers couple times a month 16. Have you been diagnosed with chronic liver disease such as hepatitis or cirrhosis? No 17. Do you have a seizure disorder? No 18. Do you have ulcerative colitis or Crohn's disease? No 19. Are you or could you be ? No 20. Any other important health information we should be made aware of prior to your colonoscopy? No To be completed by LIP: Did patient have MAC anesthesia with a previous endoscopy procedure? No Patient appropriate for Open Access Colonoscopy: Yes: appropriate for Open Access Procedure Checklist: Prior to closing the encounter: Complete questionnaire: Yes Confirm Prep order has been Ordered/Pended: Yes. Patient's procedure could be delayed if not given the script for the prep. Please ensure the prep is escripted to pharmacy or printed. Instructions for the prep will print upon filing or pending this smartset. Please send all open access questionnaires to [facility] Pool #[id number] [facility] 01-25-2023 Instructions Jarad Jones MD - 01/25/2023 9:[address] Mead. Dr. Hawkins. documented in this encounter [facility] 01-25-2023 History of Present illness Narrative This note was created using [employer]. Subjective Alejandro Bonilla is a 62 year old male. He was doing well. Hypertension was controlled. Mitral insufficiency was asymptomatic and monitored. He will be due for colonoscopy this fall. He will call back with decision to do open access here in [facility] or be referred to another endoscopist. Review of Systems Constitutional: Negative for fatigue. Respiratory: Negative for shortness of breath. Cardiovascular: Negative for chest pain, palpitations and leg swelling. Gastrointestinal: Negative. Genitourinary: Negative for difficulty urinating. Neurological: Negative for dizziness and headaches. ACTIVE PROBLEM LIST Esophageal Reflux Bph (Benign Prostatic Hyperplasia) Prostate Cancer (Hcc) Obesity, Class I, Bmi 30-34.9 Complete Right Bundle Branch Block (Rbbb) Mitral Valve Insufficiency Primary Hypertension Mixed Hyperlipidemia Social History Tobacco Use Smoking status: Never Smokeless tobacco: Never Substance Use Topics Alcohol use: Yes Alcohol/week: 3.0 standard drinks of alcohol Types: 3 Standard drinks or equivalent per week Comment: 3 x per week Drug use: No Current Outpatient Medications Medication Sig losartan-hydroCHLOROthiazide (HYZAAR) 100-25 mg per tablet Take 1 tablet by mouth once daily. famotidine (PEPCID) 20 mg tablet Take 20 mg by mouth once daily. Current Facility-Administered Medications Medication Dose Route Frequency perflutren lipid microspheres 1.3 mL in NaCl (PF) 0.9% 10 mL injection (DEFINITY) INTRAVENOUS DIRECTED PRN sodium chloride 0.9 % (flush) 10 mL (BD POSIFLUSH) 10 mL INTRAVENOUS DIRECTED PRN perflutren lipid microspheres 1.3 mL in NaCl (PF) 0.9% 10 mL injection (DEFINITY) INTRAVENOUS DIRECTED PRN sodium chloride 0.9 % (flush) 10 mL (BD POSIFLUSH) 10 mL INTRAVENOUS DIRECTED PRN perflutren lipid microspheres 1.3 mL in NaCl (PF) 0.9% 10 mL injection (DEFINITY) INTRAVENOUS DIRECTED PRN sodium chloride 0.9 % (flush) 10 mL (BD POSIFLUSH) 10 mL INTRAVENOUS DIRECTED PRN Objective BP 128/68 (BP Site: Left Arm, BP Position: Sitting, BP Cuff Size: Large Adult) Pulse 64 Resp 16 Wt 96.2 kg (212 lb) BMI 30.42 kg/m Physical Exam Cardiovascular: Rate and Rhythm: Normal rate and regular rhythm. Heart sounds: Murmur heard. Systolic murmur is present with a grade of 2/6. Diastolic murmur is present. Comments: LSB and apex. Pulmonary: Breath sounds: Normal breath sounds. Musculoskeletal: Right lower leg: No edema. Left lower leg: No edema. Neurological: Mental Status: He is alert. Assessment and Plan 1. Primary hypertension - ICD9: 401.9, ICD10: I10 (primary diagnosis) - Controlled - CBC 2. Special screening for malignant neoplasms, colon - ICD9: V76.51, ICD10: Z12.11 Options discussed, and he will call with decision. Open access here or referral to non [facility] endoscopist. 3. Mixed hyperlipidemia - ICD9: 272.2, ICD10: E78.2 - Controlled - COMP METABOLIC PANEL - LIPID PANEL BASIC 4. Mitral valve insufficiency, unspecified etiology - ICD9: 424.0, ICD10: I34.[address] Casas. 5. Prostate cancer (HCC) - ICD9: 185, ICD10: C[address] Dr[address] Oneal. - PSA/PROSTSPECAG DIAG Jarad Jones MD [facility] OPEN ACCESS QUESTIONNAIRE 1. Are you currently having any new or unusual stomach/gastrointestinal issues at this time such as constipation, diarrhea, abdominal pain, rectal bleeding etc?No 2. Do you have any difficulty swallowing? No 3. Do you have any implanted devices such as a defibrillator, pacemaker, cardiac stents or deep brain stimulator? No 4. Do you take any Blood thinners such as Coumadin, Plavix, Xarelto, Eliquis, Brilinta or any other blood thinner? No 5. Do you have any new or past cardiac (heart) or pulmonary (lung) issues? No 6. Do you currently use any oxygen? No 7. Have you been hospitalized in the past 6 weeks? No 8. Have you had difficulty with anesthesia previously re: Difficult intubation? No Other difficulty or allergic reaction to anesthesia other than post op N/V? No 9. Are you on dialysis? No 10. Do you have any bleeding disorders such as hemophilia or Factor 5? No 11. Are you an Insulin Dependent Diabetic? No IF ANY OF THE TOP ELEVEN QUESTIONS ARE ANSWERED YES PLEASE SCHEDULE THE PATIENT FOR A CONSULT. advised 12. Is the patient's BMI 40 or greater? No:There is no height or weight on file to calculate BMI.. 13. Do you take any narcotics or anti-Anxiety medications? No 14. Do you use any illegal or recreational drugs including marijuana? No 15. Any alcohol use: YES: What type of alcohol, how much and how often do you drink? : Two (2) twelve ounce beers couple times a month 16. Have you been diagnosed with chronic liver disease such as hepatitis or cirrhosis? No 17. Do you have a seizure disorder? No 18. Do you have ulcerative colitis or Crohn's disease? No 19. Are you or could you be ? No 20. Any other important health information we should be made aware of prior to your colonoscopy? No To be completed by LIP: Did patient have MAC anesthesia with a previous endoscopy procedure? No Patient appropriate for Open Access Colonoscopy: Yes: appropriate for Open Access Procedure Checklist: Prior to closing the encounter: Complete questionnaire: Yes Confirm Prep order has been Ordered/Pended: Yes. Patient's procedure could be delayed if not given the script for the prep. Please ensure the prep is escripted to pharmacy or printed. Instructions for the prep will print upon filing or pending this smartset. Please send all open access questionnaires to [facility] Pool #[id number] documented in this encounter [facility] 07-31-2022 History of Present illness Narrative Images from the original note were not included. Power Casas MD Interventional Cardiology [address] [place], [place] [id number] Chief Complaint Patient presents with: Established Patient Follow-Up HISTORY OF PRESENT ILLNESS: Mr. Bonilla is a 62 year old male seen in my office for assessment and management of mitral regurgitation patient known with mitral valve prolapse P2 prolapse with 4+ mitral regurgitation Remain asymptomatic denies chest pain or shortness of breath Blood pressures well controlled No angina No symptoms or signs of congestive heart failure Cardiac Risk Factors age (male over 45, female over 55), hypertension PAST MEDICAL HISTORY Diagnosis Date BPH (benign prostatic hyperplasia) 07/24/2011 Cardiac murmur Complete right bundle branch block (RBBB) 01/25/2017 COVID-19 06/25/2021 and 06/08/2020 Elevated PSA 2018 Epididymal cyst 09/21/2017 HTN (hypertension) Hypertensive heart disease Low HDL (under 40) 02/17/2013 Mitral valve insufficiency 08/25/2021 Mitral valve regurgitation Mixed hyperlipidemia 11/28/2021 Obesity 07/24/2011 Obesity, Class I, BMI 30-34.9 07/27/2021 Peyronie disease 09/21/20172014 Prostate cancer (HCC) 03/24/2021 PAST SURGICAL HISTORY Procedure Laterality Date COLONOSCOPY FLX DX W/COLLJ SPEC WHEN PFRMD 03/26/2013 Colonoscopy ESOPHAGOGASTRODUODENOSCOPY TRANSORAL DIAGNOSTIC 03/26/2013 EGD PROSTATE BIOPSY 02/2021 VASECTOMY UNI/BI SPX W/POSTOP SEMEN EXAMS FAMILY HISTORY Problem Relation Age of Onset Breast Cancer Mother Dementia Mother Diabetes Father 80 other (colon polyps) Father Prostate Cancer Brother None Brother Social History Tobacco Use Smoking status: Never Smokeless tobacco: Never Substance Use Topics Alcohol use: Yes Alcohol/week: 3.0 standard drinks Types: 3 Standard drinks or equivalent per week Comment: 3 x per week Drug use: No ALLERGIES No Known Allergies Medications: Current Outpatient Medications Medication Sig Dispense Refill losartan-hydroCHLOROthiazide (HYZAAR) 100-25 mg per tablet Take 1 tablet by mouth once daily. 90 tablet 3 famotidine (PEPCID) 20 mg tablet Take 20 mg by mouth once daily. Current Facility-Administered Medications Medication Dose Route Frequency Provider Last Rate Last Admin perflutren lipid microspheres 1.3 mL in NaCl (PF) 0.9% 10 mL injection (DEFINITY) INTRAVENOUS DIRECTED NEGIN Casas MD sodium chloride 0.9 % (flush) 10 mL (BD POSIFLUSH) 10 mL INTRAVENOUS DIRECTED NEGIN Casas MD perflutren lipid microspheres 1.3 mL in NaCl (PF) 0.9% 10 mL injection (DEFINITY) INTRAVENOUS DIRECTED NEGIN Casas MD sodium chloride 0.9 % (flush) 10 mL (BD POSIFLUSH) 10 mL INTRAVENOUS DIRECTED PRN Power Casas MD perflutren lipid microspheres 1.3 mL in NaCl (PF) 0.9% 10 mL injection (DEFINITY) INTRAVENOUS DIRECTED PRN Power Casas MD sodium chloride 0.9 % (flush) 10 mL (BD POSIFLUSH) 10 mL INTRAVENOUS DIRECTED PRN Power Casas MD Review of Systems Constitutional: Negative for chills, diaphoresis, fever, malaise/fatigue and weight loss. HENT: Negative for congestion, ear discharge, ear pain, hearing loss, nosebleeds, sinus pain, sore throat and tinnitus. Eyes: Negative for blurred vision, double vision, photophobia, pain, discharge and redness. Respiratory: Negative for cough, hemoptysis, sputum production, shortness of breath, wheezing and stridor. Cardiovascular: Negative for chest pain, palpitations, orthopnea, claudication, leg swelling and PND. Gastrointestinal: Negative for abdominal pain, blood in stool, constipation, diarrhea, heartburn, melena, nausea and vomiting. Genitourinary: Negative for dysuria, flank pain, frequency, hematuria and urgency. Musculoskeletal: Negative for back pain, falls, joint pain, myalgias and neck pain. Skin: Negative for itching and rash. Neurological: Negative for dizziness, tingling, tremors, sensory change, speech change, focal weakness, seizures, loss of consciousness, weakness and headaches. Endo/Heme/Allergies: Negative for environmental allergies and polydipsia. Does not bruise/bleed easily. Psychiatric/Behavioral: Negative for depression, hallucinations, memory loss, substance abuse and suicidal ideas. The patient is not nervous/anxious and does not have insomnia. Physical Examination: Vitals:BP 130/76 Pulse 94 Wt 220 lb (99.8kg) SpO2 97% BP w/Orthostatic Vitals Date and Time Orthostatic BP Orthostatic Pulse BP Pulse BP Position BP Site BP Cuff Size 07/31/22 1413 -- -- 130/76 94 Sitting Right Arm Large Adult Last 2 Encounter Wt Readings: Date: Wt: 07/31/2022 99.8 kg (220 lb) 07/27/2022 99.3 kg (219 lb) Physical Exam Constitutional: General: He is not in acute distress. Appearance: He is not diaphoretic. HENT: Head: Normocephalic and atraumatic. Right Ear: External ear normal. Left Ear: External ear normal. Nose: Nose normal. Mouth/Throat: Pharynx: Oropharynx is clear. Eyes: General: Right eye: No discharge. Left eye: No discharge. Conjunctiva/sclera: Conjunctivae normal. Pupils: Pupils are equal, round, and reactive to light. Cardiovascular: Rate and Rhythm: Normal rate and regular rhythm. Heart sounds: Normal heart sounds, S1 normal and S2 normal. No murmur heard. No friction rub. No gallop. No S3 or S4 sounds. Pulmonary: Effort: Pulmonary effort is normal. No respiratory distress. Breath sounds: Normal breath sounds. No wheezing or rales. Chest: Chest wall: No tenderness. Musculoskeletal: General: Normal range of motion. Cervical back: Normal range of motion and neck supple. Skin: General: Skin is warm and dry. Neurological: Mental Status: He is alert and oriented to person, place, and time. Psychiatric: Mood and Affect: Mood normal. Pertinent Labs: CBC: No results found for: HB, HCT, WBC, PLT BMP: No results found for: GLUC, K, NA, CHLOR, CO2, CREAT, BUN, ANION, CA INR: Lipid Profile: Cholesterol, Total Date Value Ref Range Status 03/14/2014 196 100 - 199 mg/dL Final HDL Cholesterol Date Value Ref Range Status 03/14/2014 35 (L) >45 mg/dL Final LDL Cholesterol Date Value Ref Range Status 03/14/2014 136 (H) 60 - 129 mg/dL Final Triglyceride Date Value Ref Range Status 03/14/2014 125 30 - 149 mg/dL Final Hemoglobin A1C: No results found for: HGBA1C TSH: No results found for: TSHREFL Prior Cardiac Testing none Assessment and Plan: 62 years old with asymptomatic significant mitral regurgitation Mitral regurgitation Primary mitral regurgitation due to mitral valve prolapse with P2 gallop prolapse Patient remains asymptomatic denies chest pain or shortness of breath with no symptoms of congestive heart failure Scheduled for repeat echocardiography Stress echocardiography to assess the hemodynamic significance of mitral regurgitation 2. Hypertension Well-controlled on current medication Follow up planning: yearly Electronically signed by Power Cassa MD on July 31, 2022, 2:53 PM The above note was partially created using a dictation recognition software. A reasonable attempt has been made to correct any errors. documented in this encounter [facility] 07-27-2022 Instructions Jarad Jones MD - 07/27/2022 8:26 AM EST GLAUCOMA screening. See [facility]. Medications combined in one tablet. Lose more weight and reduce sodium intake. documented in this encounter [facility] 07-27-2022 History of Present illness Narrative This note was created using [employer]. Subjective Patient presents with: Yearly Exam F/U 6 months Alejandro Bonilla is a 62 year old male. He felt well. Hypertension was close to goal. He had cardiology follow up next week. His labs thru the [facility] were en route. He otherwise felt well and continued to be active with no perceived limitations. He was interested in a combination tablet. He sees Dr. Casas for cardiology and Dr. Oneal for urology. PAST MEDICAL HISTORY Diagnosis Date BPH (benign prostatic hyperplasia) 07/24/2011 Cardiac murmur Complete right bundle branch block (RBBB) 01/25/2017 COVID-19 06/25/2021 and 06/08/2020 Elevated PSA 2018 Epididymal cyst 09/21/2017 HTN (hypertension) Hypertensive heart disease Low HDL (under 40) 02/17/2013 Mitral valve regurgitation Obesity 07/24/2011 Obesity, Class I, BMI 30-34.9 07/27/2021 Peyronie disease 09/21/2017 2015 Prostate cancer (HCC) 03/24/2021 PAST SURGICAL HISTORY Procedure Laterality Date COLONOSCOPY FLX DX W/COLLJ SPEC WHEN PFRMD 03/26/2013 Colonoscopy ESOPHAGOGASTRODUODENOSCOPY TRANSORAL DIAGNOSTIC 03/26/2013 EGD PROSTATE BIOPSY 02/2021 VASECTOMY UNI/BI SPX W/POSTOP SEMEN EXAMS FAMILY HISTORY Problem Relation Age of Onset Breast Cancer Mother Dementia Mother Diabetes Father 80 other (colon polyps) Father Prostate Cancer Brother None Brother Social History Tobacco Use Smoking status: Never Smokeless tobacco: Never Substance Use Topics Alcohol use: Yes Alcohol/week: 3.0 standard drinks Types: 3 Standard drinks or equivalent per week Comment: 3 x per week Drug use: No ALLERGIES No Known Allergies Current Outpatient Medications Medication Sig hydroCHLOROthiazide (HYDRODIURIL, ESIDRIX) 25 mg tablet Take 1 tablet by mouth once daily. losartan (COZAAR) 100 mg tablet Take 1 tablet by mouth once daily. famotidine (PEPCID) 20 mg tablet Take 20 mg by mouth once daily. No current facility-administered medications for this visit. Review of Systems Constitutional: Negative. HENT: Negative. Eyes: Negative. Respiratory: Negative. Cardiovascular: Negative. Gastrointestinal: Negative. Genitourinary: Negative. Musculoskeletal: Negative. Neurological: Negative. Objective BP 134/70 (BP Site: Left Arm, BP Position: Sitting, BP Cuff Size: Large Adult) Pulse 76 Temp 36 C (96.8 F) (Temporal) Resp 16 Ht 177.8 cm (5' 10 ) Wt 99.3 kg (219 lb) BMI 31.42 kg/m Physical Exam Constitutional: Appearance: Normal appearance. HENT: Head: Normocephalic. Eyes: Extraocular Movements: Extraocular movements intact. Conjunctiva/sclera: Conjunctivae normal. Neck: Vascular: No carotid bruit. Comments: Prominent submandibular fat pads bilaterally. Cardiovascular: Pulses: Normal pulses. Heart sounds: S1 normal and S2 normal. Murmur heard. Systolic murmur is present with a grade of 2/6. Diastolic murmur is present. Comments: ULSB and apex murmurs. Pulmonary: Breath sounds: Normal breath sounds. No wheezing or rales. Abdominal: Palpations: Abdomen is soft. Tenderness: There is no abdominal tenderness. Musculoskeletal: General: No tenderness. Normal range of motion. Right lower leg: No edema. Left lower leg: No edema. Lymphadenopathy: Cervical: No cervical adenopathy. Skin: Findings: No lesion. Neurological: General: No focal deficit present. Mental Status: He is alert. Psychiatric: Mood and Affect: Mood normal. Assessment and Plan 1. Routine medical exam - ICD9: V70.0, ICD10: Z00.00 (primary diagnosis) - Counseled on healthy diet and regular exercise - Discussed need for and benefit of weight loss. BMI 31.42 kg/(m^2) - Depression screening tool completed and reviewed with patient. Based on score and interview, patient is not at risk for depression and recommended no further intervention at this time. - Glaucoma screening. - Request Shingles vaccine record update from [facility]. 2. Primary hypertension - ICD9: 401.9, ICD10: I10 - fair control - Encouraged dietary sodium restriction/DASH diet - Discussed need and benefit for weight loss. - Reviewed risks of HTN and principles of treatment - Goal of BP <130/80 - LOSARTAN 100 MG-HYDROCHLOROTHIAZIDE 25 MG TABLET. Combined ARB and diuretic in one tablet. Patient indicated understanding and willingness to follow recommendations. 3. Mixed hyperlipidemia - ICD9: 272.2, ICD10: E78.2 - to be determined upon return of lab results 4. Obesity, Class I, BMI 30-34.9 - ICD9: 278.00, ICD10: E66.9 Stable - Behavioral intervention Jarad Jones MD documented in this encounter [facility] 03-14-2022 Miscellaneous Notes Patient calls and states that he needs prescription sent for a 90 day supply and to mail order pharmacy for insurance purposes. Please review and advise, Angela Molina RN documented in this encounter [facility] 01-23-2022 Instructions Jarad Jones MD - 01/23/2022 1:26 PM EDT Recombinant shingles vaccine (Shingrix) is recommended; 2 doses 2-6 months apart. Please read information, check with your insurance, and schedule vaccination at your local pharmacy. A prescription is not required. If you are certain you have coverage to receive this vaccine in the office, we can schedule this for you. Return sooner if BP not staying <130/80 Non fasting blood chemistry 2-3 weeks. Fasting blood chemistry 6 months. documented in this encounter [facility] 01-23-2022 History of Present illness Narrative This note was created using [employer]. Subjective Alejandro Bonilla is a 61 year old male. He felt well and was seeing Dr. Casas. His hypertension was still not at goal. Review of Systems Constitutional: Negative. Respiratory: Negative. Cardiovascular: Negative. Gastrointestinal: Negative. Genitourinary: Negative. Neurological: Negative. ACTIVE PROBLEM LIST Esophageal Reflux Bph (Benign Prostatic Hyperplasia) Low Hdl (Under 40) Elevated Psa, Less Than 10 Ng/Ml Prostate Cancer (Hcc) Obesity, Class I, Bmi 30-34.9 Complete Right Bundle Branch Block (Rbbb) Mitral Valve Insufficiency Primary Hypertension Mixed Hyperlipidemia Current Outpatient Medications Medication Sig losartan (COZAAR) 100 mg tablet Take 1 tablet by mouth once daily. famotidine (PEPCID) 20 mg tablet Take 20 mg by mouth once daily. ranitidine (ZANTAC) 75 mg tablet Take 75 mg by mouth twice daily. Current Facility-Administered Medications Medication Dose Route Frequency perflutren lipid microspheres 1.3 mL in NaCl (PF) 0.9% 10 mL injection (DEFINITY) INTRAVENOUS DIRECTED PRN sodium chloride 0.9 % (flush) 10 mL (BD POSIFLUSH) 10 mL INTRAVENOUS DIRECTED PRN Objective BP 138/82 (BP Site: Left Arm, BP Position: Sitting, BP Cuff Size: Large Adult) Pulse 76 Temp 36.3 C (97.3 F) (Temporal Artery) Resp 16 Wt 97.7 kg (215 lb 6.4 oz) BMI 30.91 kg/m Physical Exam Cardiovascular: Rate and Rhythm: Normal rate and regular rhythm. Heart sounds: Murmur heard. Systolic murmur is present with a grade of 2/6. Diastolic murmur is present with a grade of 1/4. Comments: FOX ULSB. Diastolic murmur apex. Musculoskeletal: Right lower leg: No edema. Left lower leg: No edema. Neurological: Mental Status: He is alert. Assessment and Plan 1. Primary hypertension - ICD9: 401.9, ICD10: I10 (primary diagnosis) - suboptimal control - Continue current medication(s) - Begin HCTZ - Reviewed risks of HTN and principles of treatment - Goal of BP <130/80 - HYDROCHLOROTHIAZIDE 25 MG TABLET - BASIC METABOLIC PNL 2. Mixed hyperlipidemia - ICD9: 272.2, ICD10: E78.2 - to be determined upon return of lab results - Encouraged following a low carbohydrate, healthy oil intake diet. - COMP METABOLIC PANEL - LIPID PANEL BASIC See printed instructions or information. Jarad Jones MD documented in this encounter [facility] 12-09-2021 Miscellaneous Notes Left message for pt. to return call. Please inform of below and close encounter when pt. returns call. Marcelle Daniels RN Please asked the patient for home blood pressure log in follow-up from our office visit and increasing losartan. Please remind him of pending lab work. Thank you! Lupe Donohue APRN.CNP documented in this encounter [facility] 12-05-2021 Miscellaneous Notes Losartan does not come in 75 mg tablets. I just refilled last week and gave him 50 mg tablets because he needs to take 1 and a half tablets to get 75 mg dose. I would like to re-evaluate his BP to know this dose is achieving good BP control (and that I don't need to go up to 100 mg) prior to sending more to his pharmacy. Please ask him to call back at the end of the week and update us with a home log of blood pressures on the 75 mg dosing. Please remind him of pending lab work. Thank you! Lupe Donohue APRN.CNP Message text Phoned patient and made aware of request by Lupe Donohue CNP for blood pressure log. States he will call at end of the week. Patient reports that he had labs done today. Hamida Stoner LPN Verified name and date of . Patient phones requesting refills as follows: Pending Prescriptions Disp Refills LOSARTAN 50 MG TABLET 135 tablet 0 Sig: Take 1.5 tablets by mouth once daily. BERTHA: No Patient called to report that his losartan has been increased to 75 MG tablet by mouth daily and he recently received refill of 50 MG tablets and will have a 1 1/2 month supply currently but needs new order sent to [facility] for the 75 MG tablets, 90 day supply. Please review and advise. Hamida Stoner LPN documented in this encounter [facility] 11-28-2021 Instructions Lupe Donohue APRN.EXHIBIT SPECIALIST - 11/28/2021 8:52 AM EDT High Blood Pressure: Essential Hypertension What is high blood pressure? Blood pressure is the force of blood against artery carlson as the heart pumps blood through the body. You may be told that you have high blood pressure (hypertension) if your blood pressure is higher than normal. Hypertension is called essential when no cause for it can be found. When the cause of hypertension is known, such as kidney disease or a tumor, it is called secondary hypertension. Blood pressure can rise and fall with exercise, rest, or emotions. Normal resting blood pressure ranges up to 120/80 ( 120 over 80 ). The first number (120 in this example) is the pressure when the heart beats and pushes blood out to the rest of the body. The second number (80 in this example) is the pressure when the heart rests between beats. Blood pressure is borderline high if it is 120/80 or higher but less than 140/90. High blood pressure is 140/90 or higher. If you have chronic kidney disease, 130/80 or higher is considered high blood pressure. Why is high blood pressure a problem? High blood pressure is a problem in many ways. Your heart has to work harder to pump blood through your body. The added workload on the heart causes thickening of the heart muscle. Over time, the thickening damages the heart muscle so that it can no longer pump normally. This can lead to a disease called heart failure. The higher pressure in your arteries may cause them to weaken and bleed, resulting in a stroke. As you get older, blood vessels may become hardened. High blood pressure speeds up this process. Hardened or narrowed arteries may not be able to supply enough blood to all parts of your body. High blood pressure may lead to atherosclerosis, in which deposits of cholesterol, fatty substances, and blood cells clog up an artery. Atherosclerosis is the leading cause of heart attacks. It can also cause strokes. Your kidneys, brain, and eyes may also be damaged. You may need treatment for high blood pressure for the rest of your life. However, proper treatment can control your blood pressure and help prevent heart disease, heart attack, or stroke. It can also help prevent long-term health problems, such as heart failure, kidney failure, blindness, and dementia. If you already have some complications, such as breathing problems or chest pain, lowering your blood pressure may make these problems less severe. What is the cause? There are no clear causes of essential hypertension. However, many things can increase blood pressure, such as: Being overweight Smoking Eating a diet high in salt Drinking a lot of alcohol Other important factors include: Race. Americans are more likely to have high blood pressure. Gender. Males have a greater chance of developing high blood pressure than women until age 55. After the age of 75, women are more likely to develop high blood pressure than men. Heredity. If you have parents with high blood pressure, you are more at risk. Age. The older you get, the more likely you are to have high blood pressure. Also, some medicines increase blood pressure. Stress and drinking caffeine can make blood pressure go up temporarily but it s not clear that they have any long-term effects on blood pressure. What are the symptoms? You may have high blood pressure for a long time without symptoms. You may not be able to tell by the way you feel that your blood pressure is high. The only way to find out if your blood pressure is high is to have it measured. That's why it s important to have your blood pressure checked at least once a year. When high blood pressure does cause symptoms, they may include: Headaches Nosebleeds Getting tired easily Blurred vision Dizziness Fast or irregular heartbeat Shortness of breath Chest pain How is it diagnosed? Blood pressure is checked at most healthcare visits. High blood pressure is usually discovered during one of these visits. If your blood pressure is high, you will be asked to return for follow-up checks. Your healthcare provider will ask about your personal and family medical history and examine you. Tests to look for a possible cause of high blood pressure may include: Urine and blood tests Chest X-ray Electrocardiogram (ECG), which measures and records your heartbeat You may be asked to use a portable blood-pressure measuring device, which will take your pressure at different times during day and night. How is it treated? If your blood pressure is borderline high, you may be able to bring it down to a normal level without medicine. Weight loss, changes in your diet, and exercise may be the only treatment you need. If lifestyle changes don t lower your blood pressure enough, your healthcare provider may prescribe medicine. Many people need to take 2 or more medicines to bring their blood pressure down to a healthy level. It may take several weeks or months to find the best treatment for you. How can I take care of myself? If you have high blood pressure, there are things you can do now to take care of yourself and to prevent problems in the future: Follow your treatment plan and know how to take your medicines. ?Work with your healthcare provider to find what lifestyle changes and medicines are right for you. ?Follow the directions that come with your medicine, including information about food or alcohol. Make sure you know how and when to take your medicine. Do not take more or less than you are supposed to take. ?Many medicines have side effects. A side effect is a symptom or problem that is caused by the medicine. Ask your healthcare provider or pharmacist what side effects your medicine may cause and what you should do if you have side effects. Ask if you should avoid some nonprescription medicines. ?Be careful with nonprescription medicines or herbal supplements. Some can raise blood pressure. This includes diet pills, cold and pain medicines, and energy boosters. Read labels or ask your pharmacist if the medicine or supplement affects blood pressure. Some illegal drugs, like cocaine, can also affect blood pressure. ?Check your blood pressure (or have it checked) as often as your provider advises. Keep a diary of the readings. A diary is also a good place to note your exercise, weight, salt intake, types of food you are eating, and your feelings. This can help you learn how these things can affect your blood pressure. Take your diary with you when you visit your provider. Don t smoke. Eat a healthy diet that is low in salt, saturated fat, trans fat, and cholesterol. Include lots of fruits, vegetables, and fat-free or low-fat milk and milk products. Get regular exercise, according to your healthcare provider's advice. For example, you might walk, bike, or swim at least 30 minutes 3 to 5 times a week. Limit the amount of alcohol you drink. Moderate drinking is up to 1 drink a day for women and up to 2 drinks for men. Lose weight if you need to. Try to reduce the stress in your life or learn how to deal better with situations that make you feel anxious. Ask your healthcare provider: ?How and when you will hear your test results ?How long it will take to recover ?What activities you should avoid and when you can return to your normal activities ?How to take care of yourself at home ?What symptoms or problems you should watch for and what to do if you have them Make sure you know when you should come back for a checkup. How can I help prevent high blood pressure? You can help prevent this disease with a heart-healthy lifestyle: Eat a healthy diet and keep a healthy weight. Stay fit with the right kind of exercise for you. Decrease stress. Don t smoke. Limit your use of alcohol. Talk to your healthcare provider about your personal and family medical history and your lifestyle habits. This will help you know what you can do to lower your risk for high blood pressure. Developed by [employer]. Published by [employer]. Copyright 2014 [employer] and/or one of its subsidiaries. All rights reserved. documented in this encounter [facility] 11-28-2021 History of Present illness Narrative Chief Complaint Patient presents with: Established Patient Follow-Up: BP History of Present Illness: Alejandro Bonilla is a very pleasant 61 year old male who presents for routine follow up. He has a PMhx of severe mitral regurgitation, HTN, HLD. He is known to Dr. Casas, last seen in office on 09/07/2021. He states he has been doing well since he was seen last. He explains he is active working out at the gym several days a week walking on the treadmill for 2 miles and doing light weights. He is also active in the summer biking or kayaking for fun. He is without cardiac complaints. He denies chest pain, chest pain with activity, SOB, palpitations, dizziness, syncope, orthopnea, LE swelling. We reviewed most recent echocardiogram which reveals severe mitral regurgitation and eventual need for repair/replacement in the future should he become symptomatic. We will continue to follow heart structure and function with serial echocardiograms once yearly or with a change in symptoms. He reports taking medications as prescribed. We reviewed risk factors and modifications. He is agreeable to increase losartan for suboptimal blood pressure with repeat BMP. PAST MEDICAL HISTORY Diagnosis Date BPH (benign prostatic hyperplasia) 07/24/2011 Cardiac murmur Complete right bundle branch block (RBBB) 01/25/2017 COVID-19 06/25/2021 and 06/08/2020 Elevated PSA 2017 HTN (hypertension) Hypertensive heart disease Low HDL (under 40) 02/17/2013 Mitral valve regurgitation Obesity 07/24/2011 Obesity, Class I, BMI 30-34.9 07/27/2021 Peyronie disease 09/21/2017 2015 Prostate cancer (HCC) 03/24/2021 PAST SURGICAL HISTORY Procedure Laterality Date COLONOSCOPY FLX DX W/COLLJ SPEC WHEN PFRMD 03/26/2013 Colonoscopy ESOPHAGOGASTRODUODENOSCOPY TRANSORAL DIAGNOSTIC 03/26/2013 EGD PROSTATE BIOPSY 02/2021 VASECTOMY UNI/BI SPX W/POSTOP SEMEN EXAMS FAMILY HISTORY Problem Relation Age of Onset Breast Cancer Mother Dementia Mother Diabetes Father 80 other (colon polyps) Father Prostate Cancer Brother None Brother Social History Tobacco Use Smoking status: Never Smoker Smokeless tobacco: Never Used Substance Use Topics Alcohol use: Yes Comment: occasional Drug use: No ALLERGIES No Known Allergies Medications: Current Outpatient Medications Medication Sig Dispense Refill famotidine (PEPCID) 20 mg tablet Take 20 mg by mouth once daily. losartan (COZAAR) 50 mg tablet Take 1 tablet by mouth once daily. 90 tablet 2 ranitidine (ZANTAC) 75 mg tablet Take 75 mg by mouth twice daily. Current Facility-Administered Medications Medication Dose Route Frequency Provider Last Rate Last Admin perflutren lipid microspheres 1.3 mL in NaCl (PF) 0.9% 10 mL injection (DEFINITY) INTRAVENOUS DIRECTED PRN Jarad Jones MD sodium chloride 0.9 % (flush) 10 mL (BD POSIFLUSH) 10 mL INTRAVENOUS DIRECTED PRN Jarad Jones MD Review of Systems Constitutional: Negative for chills, diaphoresis, fever, malaise/fatigue and weight loss. HENT: Negative for congestion, ear pain, nosebleeds, sinus pain and sore throat. Eyes: Negative for pain. Respiratory: Negative for cough, shortness of breath and wheezing. Cardiovascular: Negative for chest pain, palpitations, orthopnea, claudication, leg swelling and PND. Gastrointestinal: Positive for heartburn. Negative for abdominal pain, blood in stool and melena. Genitourinary: Negative for hematuria. Musculoskeletal: Negative for falls. Neurological: Negative for dizziness, tingling, sensory change, speech change, focal weakness, loss of consciousness, weakness and headaches. Endo/Heme/Allergies: Does not bruise/bleed easily. Psychiatric/Behavioral: Negative for depression, memory loss and suicidal ideas. The patient is not nervous/anxious and does not have insomnia. Physical Examination: Vitals:BP 154/72 Pulse 77 Resp 20 Wt 219 lb (99.3kg) BP w/Orthostatic Vitals Date and Time Orthostatic BP Orthostatic Pulse BP Pulse BP Position BP Site BP Cuff Size 11/28/21825 -- -- 154/72 77 Sitting Right Arm Large Adult Peak Flow Date and Time PF Resp 11/28/21825 -- 20 Last 2 Encounter Wt Readings: Date: Wt: 11/28/2021 219 lb (99.3 kg) 09/07/2021 217 lb (98.4 kg) Physical Exam HENT: Head: Normocephalic. Eyes: Pupils: Pupils are equal, round, and reactive to light. Cardiovascular: Rate and Rhythm: Normal rate and regular rhythm. Pulses: Radial pulses are 2+ on the right side and 2+ on the left side. Dorsalis pedis pulses are 2+ on the right side and 2+ on the left side. Heart sounds: S1 normal and S2 normal. Murmur heard. Systolic murmur is present. Pulmonary: Effort: Pulmonary effort is normal. No accessory muscle usage or respiratory distress. Breath sounds: Normal breath sounds. Abdominal: General: Bowel sounds are normal. Palpations: Abdomen is soft. Musculoskeletal: General: Normal range of motion. Cervical back: Normal range of motion. Right lower leg: No edema. Left lower leg: No edema. Skin: General: Skin is warm and dry. Neurological: Mental Status: He is alert and oriented to person, place, and time. Gait: Gait is intact. Psychiatric: Mood and Affect: Affect normal. Cognition and Memory: Memory normal. Judgment: Judgment normal. Most Recent Cardiac Testing CONCLUSIONS: - Exam indication: Routine surveillance of moderate or severe valvular regurgitation (<1yr) - The left ventricle is normal in size. There is mild concentric left ventricular hypertrophy. Left ventricular systolic function is normal. EF = 64 5% (2D biplane) Left ventricular diastolic function was not evaluated due to >2+ MR. - The right ventricle is normal in size. Right ventricular systolic function is normal. - The left atrial cavity is mildly dilated. - The visualized aorta is borderline dilated with a maximal dimension of 3.8 cm. - There is severe (3+ - 4+) holosystolic mitral valve regurgitation due to prolapse. Regurgitant orifice area (PISA) is 0.52 cm . - Exam was compared with the prior echocardiographic exam performed on 02/02/2017, MR has increased. Assessment and Plan: Mitral valve regurgitation -Severe on echocardiogram 07/2021. Patient is asymptomatic. Normal LV. No s/s of heart failure. Consider checking BNP at next office visit. We reviewed eventual need for repair/replacement in the future should he become symptomatic. -Repeat serial echocardiograms once yearly or with a change in symptoms to follow heart structure and function -Murmur appreciated on exam HTN -154/72, home log blood pressures continue to run 140s 150s increase losartan to 75 mg. repeat BMP in 1 to 2 weeks. call with home log in 1 to 2 weeks -Continue current medication(s) -Encouraged dietary sodium restriction/DASH diet -Recommended regular aerobic exercise. -Recommend home blood pressure monitoring, to bring results in on next visit -Discussed need and benefit for weight loss. -Goal of BP <130/80 HLD -lipid panel 07/2021 LDL 128 -consider addition of statin for risk reduction -encouraged routine activity and heart healthy diet for risk factor modification -Stress testing 2016 without suggestion of ischemia Mild LVH -Continue optimal blood pressure control and ideal body weight -Repeat serial echocardiograms once yearly or with a change in symptoms to follow heart structure and function Obesity -lifestyle modifications -encouraged a heart healthy diet, routine exercise and weight loss Follow up with Dr. Casas in 8 months. Patient to call with any issues or concerns prior to then. Electronically signed by Lupe Donohue APRN.CNP on November 28, 2021, 8:28 AM documented in this encounter [facility] 09-07-2021 Note HNO ID: [id number] Author: Power Casas MD Service: ? Author Type: Physician Type: Progress Notes Filed: 09/07/2021 4:20 PM Note Text: Power Casas MD Interventional Cardiology [address] [place] [address] Chief Complaint Patient presents with: New Patient Evaluation: mitral valve regurgitation HISTORY OF PRESENT ILLNESS: Mr. Bonilla is a 61 year old male seen in my office today for assessment management of severe mitral regurgitation patient has history of hypertensive heart disease and treated hypertension Recent physical examinations because of a murmur patient was sent to have echocardiography shows normal left ventricular function with P2 mitral valve prolapse and severe mitral regurgitation Normal left ventricular size during systole and diastole Completely asymptomatic denies chest pain or shortness of breath No angina No symptoms or signs of congestive heart failure Patient goes to the gym 3 times a week with no limitations Cardiac Risk Factors age (male over 45, female over 55), hypertension, family history of CAD PAST MEDICAL HISTORY Diagnosis Date - BPH (benign prostatic hyperplasia) 07/24/2011 - Cardiac murmur - Complete right bundle branch block (RBBB) 01/25/2017 - COVID-19 06/25/2021 and 06/08/2020 - Elevated PSA 2018 - HTN (hypertension) - Hypertensive heart disease - Low HDL (under 40) 02/17/2013 - Mitral valve regurgitation - Obesity 07/24/2011 - Obesity, Class I, BMI 30-34.9 07/27/2021 - Peyronie disease 09/21/20172014 - Prostate cancer (HCC) 03/24/2021 PAST SURGICAL HISTORY Procedure Laterality Date - COLONOSCOPY FLX DX W/COLLJ SPEC WHEN PFRMD 03/26/2013 Colonoscopy - ESOPHAGOGASTRODUODENOSCOPY TRANSORAL DIAGNOSTIC 03/26/2013 EGD - PROSTATE BIOPSY 02/2021 - VASECTOMY UNI/BI SPX W/POSTOP [facility] FAMILY HISTORY Problem Relation Age of Onset - Breast Cancer Mother - Dementia Mother - Diabetes Father 80 - other (colon polyps) Father - Prostate Cancer Brother - None Brother Social History Tobacco Use - Smoking status: Never Smoker - Smokeless tobacco: Never Used Substance Use Topics - Alcohol use: Yes Comment: occasional - Drug use: No ALLERGIES No Known Allergies Medications: Current Outpatient Medications Medication Sig Dispense Refill - losartan (COZAAR) 25 mg tablet Take 1 tablet by mouth once daily. 30 tablet 11 - ranitidine (ZANTAC) 75 mg tablet Take 75 mg by mouth twice daily. Current Facility-Administered Medications Medication Dose Route Frequency Provider Last Rate Last Admin - perflutren lipid microspheres 1.3 mL in NaCl (PF) 0.9% 10 mL injection (DEFINITY) INTRAVENOUS DIRECTED PRN Jarad Jones MD - sodium chloride 0.9 % (flush) 10 mL (BD POSIFLUSH) 10 mL INTRAVENOUS DIRECTED PRN Jarad Jones MD Review of Systems Constitutional: Negative for chills, diaphoresis, fever, malaise/fatigue and weight loss. HENT: Negative for congestion, ear discharge, ear pain, hearing loss, nosebleeds, sinus pain, sore throat and tinnitus. Eyes: Negative for blurred vision, double vision, photophobia, pain, discharge and redness. Respiratory: Negative for cough, hemoptysis, sputum production, shortness of breath, wheezing and stridor. Cardiovascular: Negative for chest pain, palpitations, orthopnea, claudication, leg swelling and PND. Gastrointestinal: Negative for abdominal pain, blood in stool, constipation, diarrhea, heartburn, melena, nausea and vomiting. Genitourinary: Negative for dysuria, flank pain, frequency, hematuria and urgency. Musculoskeletal: Negative for back pain, falls, joint pain, myalgias and neck pain. Skin: Negative for itching and rash. Neurological: Negative for dizziness, tingling, tremors, sensory change, speech change, focal weakness, seizures, loss of consciousness, weakness and headaches. Endo/Heme/Allergies: Negative for environmental allergies and polydipsia. Does not bruise/bleed easily. Psychiatric/Behavioral: Negative for depression, hallucinations, memory loss, substance abuse and suicidal ideas. The patient is not nervous/anxious and does not have insomnia. Physical Examination: Vitals:BP 190/90 Pulse 79 Ht 5' 10 (1.78m) Wt 217 lb (98.4kg) SpO2 97% BMI 31.14 kg/(m2). BP w/Orthostatic Vitals Date and Time Orthostatic BP Orthostatic Pulse BP Pulse BP Position BP Site BP Cuff Size 09/07/21 1508 -- -- 190/90 79 Sitting Left Arm Regular Adult Last 2 Encounter Wt Readings: Date: Wt: 09/07/2021 217 lb (98.4 kg) 07/27/2021 217 lb (98.4 kg) Physical Exam Constitutional: General: He is not in acute distress. Appearance: He is not diaphoretic. HENT: Head: Normocephalic and atraumatic. Right Ear: External ear normal. Left Ear: External ear normal. Nose: Nose normal. Mouth/Throat: Mouth: Mucous membranes are moist. Eyes: General: Right eye: No discharge (more content not included)... [facility] documented as of this encounter (statuses as of 01/23/2022) [facility] History of Past illness Narrative* Problem Noted Date Resolved Date Elevated blood pressure reading 07/27/2021 01/23/2022 Heart murmur 07/27/2021 01/23/2022 Epididymal cyst 09/21/2017 01/23/2022 Peyronie disease 09/21/2017 01/23/2022 Overview: 2014 Left lumbar radiculopathy 04/08/20152016 Family history of prostate cancer 12/17/2014 01/23/2022 Obesity 07/24/2011 04/08/2015 documented as of this encounter (statuses as of 03/15/2022) [place] [address]-02-2022 History of Past illness Narrative* Problem Noted Date Resolved Date Elevated blood pressure reading 07/27/2021 01/23/2022 Heart murmur 07/27/2021 01/23/2022 Epididymal cyst 09/21/2017 01/23/2022 Peyronie disease 09/21/2017 01/23/2022 Overview: 2014 Left lumbar radiculopathy 04/08/20152016 Family history of prostate cancer 12/17/2014 01/23/2022 Elevated PSA, less than 10 ng/ml 02/17/2013 07/27/2022 Obesity 07/24/2011 04/08/2015 documented as of this encounter (statuses as of 07/27/2022) [place] [address]-02-2022 History of Past illness Narrative* Problem Noted Date Resolved Date Elevated blood pressure reading 07/27/2021 01/23/2022 Heart murmur 07/27/2021 01/23/2022 Epididymal cyst 09/21/2017 01/23/2022 Peyronie disease 09/21/2017 01/23/2022 Overview: 2014 Left lumbar radiculopathy 04/08/20152016 Family history of prostate cancer 12/17/2014 01/23/2022 Elevated PSA, less than 10 ng/ml 02/17/2013 07/27/2022 Obesity 07/24/2011 04/08/2015 documented as of this encounter (statuses as of 07/31/2022) [facility] History of Past illness Narrative* Problem Noted Date Resolved Date Elevated blood pressure reading 07/27/2021 01/23/2022 Heart murmur 07/27/2021 01/23/2022 Epididymal cyst 09/21/2017 01/23/2022 Peyronie disease 09/21/2017 01/23/2022 Overview: 2014 Left lumbar radiculopathy 04/08/20152016 Family history of prostate cancer 12/17/2014 01/23/2022 Elevated PSA, less than 10 ng/ml 02/17/2013 07/27/2022 Obesity 07/24/2011 04/08/2015 documented as of this encounter (statuses as of 08/09/2022) [facility] History of Past illness Narrative* Problem Noted Date Diagnosed Date Resolved Date Elevated blood pressure reading 07/27/2021 01/23/2022 Heart murmur 07/27/2021 01/23/2022 Epididymal cyst 09/21/2017 01/23/2022 Peyronie disease 09/21/2017 01/23/2022 Overview: 2014 Left lumbar radiculopathy 04/08/2015 Family history of prostate cancer 12/17/2014 01/23/2022 Low HDL (under 40) 02/17/2013 02/17/202 3 Elevated PSA, less than 10 ng/ml 02/17/2013 07/27/2022 Obesity 07/24/2011 04/08/2015 documented as of this encounter (statuses as of 01/25/2023) [facility] History of Past illness Narrative* Problem Noted Date Diagnosed Date Resolved Date Elevated blood pressure reading 07/27/2021 01/23/2022 Heart murmur 07/27/2021 01/23/2022 Epididymal cyst 09/21/2017 01/23/2022 Peyronie disease 09/21/2017 01/23/2022 Overview: 2014 Left lumbar radiculopathy 04/08/2015 Family history of prostate cancer 12/17/2014 01/23/2022 Low HDL (under 40) 02/17/2013 3 Elevated PSA, less than 10 ng/ml 02/17/2013 07/27/2022 Obesity 07/24/2011 04/08/2015 documented as of this encounter (statuses as of 08/03/2023) [facility] History of Past illness Narrative* Problem Noted Date Diagnosed Date Resolved Date Elevated blood pressure reading 07/27/2021 01/23/2022 Heart murmur 07/27/2021 01/23/2022 Epididymal cyst 09/21/2017 01/23/2022 Peyronie disease 09/21/2017 01/23/2022 Overview: 2014 Left lumbar radiculopathy 04/08/2015 Family history of prostate cancer 12/17/2014 01/23/2022 Low HDL (under 40) 02/17/2013 3 Elevated PSA, less than 10 ng/ml 02/17/2013 07/27/2022 Obesity 07/24/2011 04/08/2015 documented as of this encounter (statuses as of 08/13/2023) [facility] History of Past illness Narrative* Problem Noted Date Resolved Date Left lumbar radiculopathy 04/08/20152016 Obesity 07/24/2011 04/08/2015 documented as of this encounter (statuses as of 09/20/2021) [place] [address]-15-2015 History of Past illness Narrative* Problem Noted Date Resolved Date Left lumbar radiculopathy 04/08/20152016 Obesity 07/24/2011 04/08/2015 documented as of this encounter (statuses as of 10/04/2021) [facility] History of Past illness Narrative* Problem Noted Date Resolved Date Left lumbar radiculopathy 04/08/20152016 Obesity 07/24/2011 04/08/2015 documented as of this encounter (statuses as of 11/28/2021) [facility] History of Past illness Narrative* Problem Noted Date Resolved Date Left lumbar radiculopathy 04/08/20152016 Obesity 07/24/2011 04/08/2015 documented as of this encounter (statuses as of 12/09/2021) [facility] History of Past illness Narrative* Problem Noted Date Resolved Date Left lumbar radiculopathy 04/08/20152016 Obesity 07/24/2011 04/08/2015 documented as of this encounter (statuses as of 12/15/2021) [facility] note* Diagnosis Primary hypertension- Primary Unspecified essential hypertension Elevated blood pressure reading Elevated blood pressure reading without diagnosis of hypertension Mitral valve insufficiency, unspecified etiology Heart murmur Undiagnosed cardiac murmurs Obesity, Class I, BMI 30-34.9 Obesity, unspecified Mixed hyperlipidemia [facility] Diagnosis Primary hypertension- Primary Unspecified essential hypertension Mixed hyperlipidemia [facility] Diagnosis Primary hypertension Unspecified essential hypertension [facility] Diagnosis Routine medical exam- Primary Routine general medical examination at a health care facility Primary hypertension Unspecified essential hypertension Mixed hyperlipidemia Obesity, Class I, BMI 30-34.9 Obesity, unspecified [facility] Diagnosis Mitral valve disorder- Primary Mitral valve disorders [facility] Diagnosis Primary hypertension- Primary Unspecified essential hypertension Special screening for malignant neoplasms, colon Mixed hyperlipidemia Mitral valve insufficiency, unspecified etiology Prostate cancer (HCC) Malignant neoplasm of prostate [facility] this [facility] Diagnosis Primary hypertension Unspecified essential hypertension [facility] Diagnosis Mitral valve disorder- Primary Mitral valve disorders Preoperative examination Preoperative examination, unspecified [facility] Outpatient Procedure (Routine) - Pending Review Specialty Diagnoses / Procedures Referred By Iqra bowers Referred To Contact [facility] Diagnoses Mitral valve disorder Procedures STRESS ECHO TREADMILL ECHO TTHRC R-T 2D W/WO M-MODE COMPLETE REST&ST Power Casas MD [address] [place] [address] Fax: [facility] [address] [place] [id number] Referral ID Status Reason Start Date Expiration Date Visits Requested Visits Authorized [id number] Pending Review Auto-Generat ed Referral 07/31/2022 07/31/2023 1 1 * Outpatient Procedure (Routine) - Authorized Specialty Diagnoses / Procedures Referred By Iqra t Referred To Contact [facility] Diagnoses Mitral valve disorder Procedures ECHO WITH AGITATED SALINE CONTRAST ECHO TRANSTHORAC R-T 2D W/WO M-MODE REC COMP Power Casas MD [address] [place] [address] Fax: [facility] [address] [place] [id number] Referral ID Status Reason Start Date Expiration Date Visits Requested Visits Authorized [id number] Authorized Auto-Generat ed Referral 07/31/2022 07/31/2023 1 1 * Outpatient Procedure (Routine) - Pending Review Specialty Diagnoses / Procedures [facility] Diagnoses Mitral valve disorder Procedures ECHO ECHO TTHRC R-T 2D W/WOM-MODE COMPL SPEC&COLR D Power Casas MD [address] [place] [address] Fax: [facility] [address] [place] [phone] Referral ID Status Reason Start Date Expiration Date Visits Requested Visits Authorized [id number] Pending Review Auto-Generat ed Referral 08/07/2022 07/31/2023 1 1 [facility] Outpatient Procedure (Routine) - Authorized Specialty Diagnoses / Procedures Referred By Contac t Referred To Contact [facility] Diagnoses Mitral valve disorder Procedures ECHO ECHO TTHRC R-T 2D W/WOM-MODE COMPL SPEC&COLR D Power Casas MD [address] [place] [address] [facility] [place] [address] [place] [address] Referral ID Status Reason Start Date Expiration Date Visits Requested Visits Authorized [id number] Authorized Auto-Generat ed Referral 09/11/2023 08/12/2024 1 1 * Outpatient Procedure (Routine) - Pending Review Specialty Diagnoses / Procedures Referred By Contac t Referred To Contact [facility] Diagnoses Screening for ischemic heart disease Procedures ECG COMPLETE ECG ROUTINE ECG W/LEAST 12 LDS W/I&R Power Casas MD [address] [place] [address] [facility] [place] [address] [place] [address] Referral ID Status Reason Start Date Expiration Date Visits Requested Visits Authorized [id number] Pending Review Auto-Generat ed Referral 08/08/2023 08/07/2024 1 1 [facility] Summary Purpose Family History No Family History Records FoundNo Family History Records Found Advance Directives No Advanced Directives Records FoundNo Advanced Directives Records Found Additional Source Comments Source Comments (unrecognize d section and content) In the event this informatio n is protected by the Federal Confidentiality of Alcohol and Drug Abuse Patient Records regulations: The Federal rules restrict any use of the information to criminally investigate or prosecute any alcohol or drug abuse patient.[facility] the event this information is protected by the Federal Confidentiality of Alcohol and Drug Abuse Patient Records regulations: The Federal rules restrict any use of the information to criminally investigate or prosecute any alcohol or drug abuse patient.[facility] the event this information is protected by the Federal Confidentiality of Alcohol and Drug Abuse Patient Records regulations: The Federal rules restrict any use of the information to criminally investigate or prosecute any alcohol or drug abuse patient.[facility] the event this information is protected by the Federal Confidentiality of Alcohol and Drug Abuse Patient Records regulations: The Federal rules restrict any use of the information to criminally investigate or prosecute any alcohol or drug abuse patient.[facility] the event this information is protected by the Federal Confidentiality of Alcohol and Drug Abuse Patient Records regulations: The Federal rules restrict any use of the information to criminally investigate or prosecute any alcohol or drug abuse patient.[facility] the event this information is protected by the Federal Confidentiality of Alcohol and Drug Abuse Patient Records regulations: The Federal rules restrict any use of the information to criminally investigate or prosecute any alcohol or drug abuse patient.[facility] the event this information is protected by the Federal Confidentiality of Alcohol and Drug Abuse Patient Records regulations: The Federal rules restrict any use of the information to criminally investigate or prosecute any alcohol or drug abuse patient.[facility] the event this information is protected by the Federal Confidentiality of Alcohol and Drug Abuse Patient Records regulations: The Federal rules restrict any use of the information to criminally investigate or prosecute any alcohol or drug abuse patient.[facility] the event this information is protected by the Federal Confidentiality of Alcohol and Drug Abuse Patient Records regulations: The Federal rules restrict any use of the information to criminally investigate or prosecute any alcohol or drug abuse patient.[facility] the event this information is protected by the Federal Confidentiality of Alcohol and Drug Abuse Patient Records regulations: The Federal rules restrict any use of the information to criminally investigate or prosecute any alcohol or drug abuse patient.[facility] the event this information is protected by the Federal Confidentiality of Alcohol and Drug Abuse Patient Records regulations: The Federal rules restrict any use of the information to criminally investigate or prosecute any alcohol or drug abuse patient.[facility] the event this information is protected by the Federal Confidentiality of Alcohol and Drug Abuse Patient Records regulations: The Federal rules restrict any use of the information to criminally investigate or prosecute any alcohol or drug abuse patient.[facility] the event this information is protected by the Federal Confidentiality of Alcohol and Drug Abuse Patient Records regulations: The Federal rules restrict any use of the information to criminally investigate or prosecute any alcohol or drug abuse patient.[facility] Care Teams (unrecognized sec tion and content) Underwriting Clerk Relationship Specialty Start Date End Date Jarad Jones MD [address] [place] [address] PCP - General Internal Medicine 08/11/21 Underwriting Clerk Relationship Specialty Start Date End Date Jarad Jones MD [address] [place] [address] PCP - General Internal Medicine 08/11/21 Underwriting Clerk Relationship Specialty Start Date End Date Jarad Jones MD [address] [place] [address] PCP - General Internal Medicine 08/11/21 Underwriting Clerk Relationship Specialty Start Date End Date Jarad Jones MD [address] [place] [address] PCP - General Internal Medicine 08/11/21 Underwriting Clerk Relationship Specialty Start Date End Date Jarad Jones MD [address] [place] [address] PCP - General Internal Medicine 08/11/21 Underwriting Clerk Relationship Specialty Start Date End Date Jarad Jones MD [address] [place] [address] PCP - General Internal Medicine 08/11/21 Underwriting Clerk Relationship Specialty Start Date End Date Jarad Jones MD [address] [place] [address] PCP - General Internal Medicine 08/11/21 Underwriting Clerk Relationship Specialty Start Date End Date Jarad Jones MD [address] [facility] [place] [id number] PCP - General Internal Medicine 08/11/21 Underwriting Clerk Relationship Specialty Start Date End Date Jarad Jones MD [address] [place] [id number] PCP - General Internal Medicine 08/11/21 Reason for Visit (unrecogniz ed section and content) Reason Comments Blood Pressure Reason Onset Date Comments Refill Request 12/05/2021 Reason Comments F/U 6 months Reason Onset Date Comments Refill Request 03/14/2022 Reason Comments Yearly Exam F/U 6 months Reason Comments Established Patient Follow-Up Reason Onset Date Comments Refill Request 08/03/2023 Reason Comments Follow Up (unrecognized sect ion and content) No Status Records FoundNo Status Records Found INFORMATION SOURCE (unrecogn ized section and content) DATE CREATED AUTHOR AUTHOR'S ORGANIZ ATION 08/02/2023 [facility] FOR RECORDS PERTAINING TO PATIENTS WHO ARE OR HAVE BEEN ENROLLED IN A CHEMICAL DEPENDENCY/SUBSTANCEABUSE PROGRAM, SOME INFORMATION MAY BE OMITTED. This clinical summary was aggregated from multiple sources. Caution should be exercised in using it in the provision of clinical care. This summary normalizes information from multiple sources, and as a consequence, information in this document may materially change the coding, format and clinical context of patient data. In addition, data may be omitted in some cases. CLINICAL DECISIONS SHOULD BE BASED ON THE PRIMARY CLINICAL RECORDS. [employer] provides no warranty or guarantee of the accuracy or completeness of information in this document.
--- NOTE | 2023-08-14 05:53 | PCM.HP.BLA ---
History and Physical Date of Admission: 08/14/23 Reel Slitter Required: No Is patient in pain?: No Allergies No Known Allergies Allergy (Verified 06/27/23 07:29) Medications losartan 100 mg-hydrochlorothiazide 25 mg tablet 1 tab PO DAILY 03/01/23 [History Confirmed 05/07/23] omeprazole 40 mg capsule,delayed release 40 mg PO DAILY #90 caps 05/25/23 [Rx Confirmed 05/25/23] cimetidine 200 mg tablet 200 mg PO .QOD 06/27/23 [History Confirmed 06/27/23] FOR[facility]LY [facility] Medical History Alcohol use Cardiology follow-up encounter GERD (gastroesophageal reflux disease) Hiatal hernia History of diverticulosis History of echocardiogram History of hiatal hernia History of stress test HTN (hypertension) MVP (mitral valve prolapse) Non-smoker Prostate disease Surgical History Hx of colonoscopy Hx of esophagogastroduodenoscopy Family History Mother Breast cancer Social History household members: spouse current occupational status: employed Smoking Status: Never smoker substance use type: does not use HPI HPI HPI: 63-year-old gentleman returns to discuss gastroesophageal reflux disease. On June 01, 2023 he had esophageal manometry performed. The interpretation was that most swallows were weak but did have good clearance of the bolus. Normal LES relaxation tone. 80% of the swallows were felt to be ineffective. The patient however does not appear to have trouble swallowing either solids or liquids. At no point to dry foods like bread gets stuck. He does not have to retch. He does state that there was some difficulty in placing the manometry tube. Previous notes reflect the following 63-year-old gentleman. Initially got to see him March 29, 2023. He was referred at that time because of persistent cough and symptoms consistent with gastroesophageal reflux disease. He was also in need of a screening colonoscopy. On May 11, 2023 we performed a combined upper and lower endoscopy. Findings demonstrated chronic gastritis with a benign fundic gland polyp. Gastroesophageal junction showed mild chronic inflammation with focal changes of reflux and hiatal hernia. There was no evidence of Chen's. H. pylori was negative. A ascending colon polyp was a tubular adenoma. Follow-up colonoscopy at 5 years recommended. He returns today to discuss surgical treatment options for GE reflux disease. He is currently maintained on famotidine 20 mg daily. The patient simply was taking famotidine [id number]. He has run out of that and did not restart it over the past 10 days. He is noticing some increase in reflux symptoms. He notes some increased burping since his upper endoscopy procedure. He does enjoy going to the gym and does some weightlifting. Some of that his core procedures which causes Valsalva. ROS General General: No weight change, appetite, fatigue, colon cancer, breast cancer or weakness HEENT HEENT: Yes eye surgery; No difficulty swallowing, eye injury, swollen glands or hoarseness Endo Endocrine: No thyroid disease, diabetes mellitus, thyroid cancer, Hair loss, heat intolerance or cold intolerance Skin Skin: No rash or changing moles Musc Musculoskeletal: No back problems, arthritis, rheumatoid arthritis, gout or joint pain Cardio Cardiovascular: Yes murmur; No pacemaker, heart disease, atrial fibrillation, high blood pressure, heart attack, heart stent, palpitations, shortness of breat with exertion or chest pain Psych Psychiatric: No depression, anxiety or hearing voices Resp Respiratory: No shortness of breath, No sleep apnea, No cough, No COPD, No asthma, No emphysema and No wheezing Gastro Gastrointestinal: No abdominal pain, No nausea or vomiting, No diarrhea, No constipation, No blood in stool, Yes acid reflux, No hemorrhoids, No ulcers, No gallbladder problem and No black,tarry stools Gilbert Hematologic: No blood thinners, No blood disorders, No bleeding, No anemia and No blood clots Neuro Neurologic: No system reviewed and no additional complaints, except as documented, No as per HPI, No abnormal gait, No abnormal hearing, No abnormal movements, No abnormal speech, No behavioral changes, No burning sensations, No confusion, No convulsions, No disequilibrium, No dizziness, No localized weakness, No frequent falls, No headache(s), No lack of coordination, No loss of vision, No memory loss, No numbness, No other visual disturbances, No radicular pain, No restless legs, No sensory deficit, No syncope, No tingling, No tremor(s), No weakness and No other Assessment and Plan Assessment and Plan (1) GERD (gastroesophageal reflux disease): Status: Acute Qualifiers: Esophagitis presence: esophagitis presence not specified Qualified Code(s): K21.9 - Gastro-esophageal reflux disease without esophagitis Plan: Today was a 30-minute [id number] consultative appoint with the patient and his regarding his hiatal hernia active reflux disease and treatment options. He has had this hernia and reflux for at least 10 years and was extensively on PPIs until it was recommended by Dr. Romeo Acevedo, III family practitioner that the patient should try to guide away from this medication if feasible. That is when the patient started trying famotidine but despite the famotidine the patient had active inflammation identified on his upper endoscopy. Fortunately no evidence of Chen's and no evidence of stricturing at this time. He has a small hiatal hernia. Today's appointment was to discuss surgical treatment options. We discussed esophageal manometry. We discussed laparoscopic repair with laparoscopic toupet procedure laparoscopic Silvestre fundoplication. We compared the benefits and risks. We discussed the intricacies of the surgical procedure. He has had an opportunity to ask and have questions answered. At this time he is at least interested in proceeding with further diagnostic information. We will pursue esophageal manometry. Then we will have the patient return to help decipher how best to proceed. With as active this is patient is I would at this point be considering a laparoscopic Silvestre fundoplication if the manometry warrants. I appreciate the ongoing opportunity of assisting with the surgical care. Copy: Dr. Jarad Acevedo M.D., F.A.C.S. ROS General General: No weight change, appetite, fatigue, colon cancer, breast cancer or weakness HEENT HEENT: Yes eye surgery; No difficulty swallowing, eye injury, swollen glands or hoarseness Endo Endocrine: No thyroid disease, diabetes mellitus, thyroid cancer, Hair loss, heat intolerance or cold intolerance Skin Skin: No rash or changing moles Musc Musculoskeletal: No back problems, arthritis, rheumatoid arthritis, gout or joint pain Cardio Cardiovascular: Yes murmur; No pacemaker, heart disease, atrial fibrillation, high blood pressure, heart attack, heart stent, palpitations, shortness of breat with exertion or chest pain Psych Psychiatric: No depression, anxiety or hearing voices Resp Respiratory: No shortness of breath, No sleep apnea, No cough, No COPD, No asthma, No emphysema and No wheezing Gastro Gastrointestinal: No abdominal pain, No nausea or vomiting, No diarrhea, No constipation, No blood in stool, Yes acid reflux, No hemorrhoids, No ulcers, No gallbladder problem and No black,tarry stools Gilbert Hematologic: No blood thinners, No blood disorders, No bleeding, No anemia and No blood clots Neuro Neurologic: No system reviewed and no additional complaints, except as documented, No as per HPI, No abnormal gait, No abnormal hearing, No abnormal movements, No abnormal speech, No behavioral changes, No burning sensations, No confusion, No convulsions, No disequilibrium, No dizziness, No localized weakness, No frequent falls, No headache(s), No lack of coordination, No loss of vision, No memory loss, No numbness, No other visual disturbances, No radicular pain, No restless legs, No sensory deficit, No syncope, No tingling, No tremor(s), No weakness and No other Assessment and Plan Assessment and Plan (1) GERD (gastroesophageal reflux disease): Status: Acute Qualifiers: Esophagitis presence: esophagitis presence not specified Qualified Code(s): K21.9 - Gastro-esophageal reflux disease without esophagitis Plan: RoutineThe patient has a history of long-term proton pump inhibitor therapy and would like to avoid returning to that. He currently takes famotidine and uses cimetidine for additional assistance. He elevates the head of his bed. He has intermittent recurrence of symptoms and depending upon food choices can still require ant-acids. We had an extensive discussion regarding laparoscopic surgery with plans for laparoscopic toupet procedure. He is aware of the technique, benefit, risk, alternatives. No guarantees of success been offered. We have provided him postoperative dietary and physical limitation instructions. The goal is to either eliminate the requirement for acid reducing medications or significantly diminished the requirement. He is interested in pursuing. We will schedule and proceed at his discretion. It is of note that his has need for upcoming surgery and so he will schedule around her requirements as well. Copy: Dr. Jarad Acevedo M.D., F.A.C.S Plan to proceed with a laparoscopic tape procedure and treatment of chronic reflux esophagitis. History and physical has been reviewed with no changes. We will proceed as noted. Antoine Acevedo M.D., F.A.C.S.
--- NOTE | 2023-08-14 05:54 | EX.PCM.DISCH ---
Discharge Instructions Procedure General Surgery Activity Discharge Activity: May Not Drive (for 3-5 days or while taking narcotic pain medicine.) May shower in (days): 1 Lifting Restrictions: 10 pounds Additional Activity Instructions:: Dietary and activity instructions as previously provided from the office. Dressing / Incision Call your doctor if your incision/area has: Continuous Slow Oozing, Sudden Increased Bleeding, Increased Pain/ Swelling, Increased Redness and Foul Smelling Discharge Call your doctor if you observe: Fever of 101 or Higher Suture Line Care: Avoid Pulling/Pushing and Avoid Pinching/Bending Additional Dressing/Incision Instructions:: Change or remove dressing in 4 days. Leave steri-strips in place for 1 week. Follow Up Care Please Follow Up With: Antoine Acevedo MD When: Call [phone] to make an appointment to be seen in about 10 days. Test Results: Test results from this visit will be discussed in further detail at your follow-up appointment, if applicable. Discharge Plan Admission Primary Reason for Your Visit: Intractable gastroesophageal reflux disease Attending Provider: Antoine Acevedo Primary Care Provider: Jarad Oliver Discharge Orders/Prescriptions Prescriptions: New hydrocodone-acetaminophen 5-325 mg tablet 1 tab PO Q6H PRN (Reason: pain) 3 Days Qty: 8 0RF Continued losartan-hydrochlorothiazide 100-25 mg tablet 1 tab PO DAILY cimetidine 200 mg tablet 200 mg PO QODAY omeprazole 40 mg capsule,delayed release(DR/EC) 40 mg PO QODAY Other Ambulatory Orders: 12 Lead EKG (Routine) Timeframe: [id number] Location: None Selected Ordered By: Dr. Antoine Acevedo Referrals / Follow Up: Jarad Oliver MD [Primary Care Provider] - Disposition Disposition (needs filled in before D/C Order can be placed): Home, Self Care
[2023-08-14] MEDS: Lactated Ringers 1,000 ML 15 ML IV (06:12)
--- NOTE | 2023-08-14 07:30 | HERN_PTH ---
PATHOLOGY RESULTS PATIENT: HANDY ASHLEY LOC: [facility] [place] U#:[id number] AGE/SX: 63/M ROOM: RE08/14/[address]: Dr. Antoine Acevedo MD : 1960 BED: DIS: 08/14/2023 SPEC #: [id number] RECD: 08/14/23 13:00 STATUS: BARBARA KAYLEE #: [id number] TESSA: 08/14/23 07:[address]: Antoine Acevedo DEPT: SURGICAL PATHOLOGY RECD BY: Gloria Qureshi ENTERED: 08/14/23 13:01 SP TYPE: Hernia OTHR DR: Dr. Jarad Oliver MD Tissues: HERNIA Procedures: Surgery Specimen Level II HEADER OPERATION: Laparoscopic repair hiatal hernia with laparoscopic Toupet PRE-OP DIAGNOSIS: GERD, hernia TISSUE SUBMITTED: Hernia sac MICROSCOPIC DIAGNOSIS Hiatal hernia, herniorrhaphy: Fibrosis and vascular congestion. AM:graham 08/15/2023 MICROSCOPIC DESCRIPTION Slides are reviewed. GROSS DESCRIPTION Received in fixative is one container labeled with the patient's name and designated hernia sac. The specimen consists of three variable sized pieces of soft tissue measuring in aggregate 6.0 x 2.5 x 1.0 cm. No mass lesion is identified. Store Team Member sections are submitted in one cassette. / SJ:graham 08/14/2023 TC:5 CPT: 45337
[2023-08-14] MEDS: Cefazolin 2 GM in 0.9% Normal Saline (100mL Bag) 100 ML IV (07:50)
[2023-08-14] MEDS: Bupivacaine Mpf 0.5% 30 ML VIAL (11:39)
--- NOTE | 2023-08-14 11:43 | PCM.OPRPT ---
Problems Associated Problem List Diagnoses (1) GERD (gastroesophageal reflux disease): Report of Operation Date of Procedure: 08/14/23 Pre-Operative Diagnosis: Intractable gastroesophageal reflux disease Post-Operative Diagnosis: Same Surgery/Procedure Performed:: Laparoscopic repair of hiatal hernia with laparoscopic toupet procedure Description of Surgical Findings:: Timeout informed consent was obtained. 63-year-old gentleman was taken to the op room placed on the table underwent general endotracheal intubation and anesthesia. The patient received 2 g of Ancef. He was placed in a low lithotomy position. Careful buttock padding was performed. Antibiotics support pad was placed. Beanbag was utilized. His abdomen then was sterilely prepped and draped. 0.5% Marcaine was used as a local anesthetic without the procedure a total of 30 cc was used. Skin sites were Keanu size. Superior to the umbilicus in the right Godwin epigastric area and a 5 mm port was placed under ModClothort technology. The abdomen was insufflated with CO2 to a pressure of 10 mmHg pressure. Then a 10 mm trocar was placed in the left epigastric area 2 more 5 mm trocars in the left subcostal area and 1 5 Ayala trocar was used to make an opening in the superior epigastric area when a medium Jayden retractor was placed and used to elevate the left lobe of the liver. The stomach was grossly distended from the intubation and so an OG tube was placed to decompress. I used the local to do a modified nerve block anesthetizing the epigastric and subcostal areas proximal to the port placement as well. There was a significant amount of fibrillar fatty tissue that was incorporated throughout the entire operation. The greater omentum wanted to elevate itself and continue to be stuck at the EG junction level. There is fatty adherence I had dissect the pars flaccida him. Did get some bleeding that point which are easily secured with Hem-o-jaimie clips. I then clear attention to the greater curvature transected short gastrics tediously and carefully. There is a significant amount of retrogastric fat pad and I had a tediously dissected that free. The vagus nerve was identified and protected the left naeem was identified first I dissected over the anterior surface and then was able to identify the extent of the fibrofatty tissue that I could then transect to identify the right naeem. Was able to get access posterior to the esophagus taking great care that the vagus was with the esophagus placed a Xiomy drain and use that to help manipulate as I then worked into the distal mediastinal area circumferentially dissecting through the esophagus so that I would get that back down into the abdomen. I felt that I had good length. Had good visualization of the diaphragmatic crura. Using pledgeted 0 Ethibond sutures and I repaired the diaphragm . I used a 46 English bougie to measure sizing. Having achieved that now I wrapped the fundus of the stomach. I secured the posterior aspect of the wrap to the crura with the 0 Ethibond. I then secured the wrap portion to the esophagus epiphrenic ligament and into the right portion of the stomach using a 2-0 Ethibond in a running fashion secured that to the right lateral aspect of the esophagus. I then used a second 2-0 Ethibond to secure the fundus to the left side of the esophagus and epiphrenic ligament with in a running fashion. I estimated the wrap to be between 270 and 300 degrees. I felt that I had good approximation. I placed an extra collar suture of 0 Ethibond on the right. I then performed upper endoscopy that separately dictated in the probation system. The wrap appeared to be intact. There was absolutely no air leak. Small tear in the suspensory ligament of the left lobe of the liver was treated with hemoblast. Hemostasis was intact. Spleen was intact. No evidence of any air leak. During the procedure I had elected to take the greater omentum which continued to want to elevate itself back into the retrogastric space I used a grainy needle and a 0 Vicryl in a through and through fixation stitch in the left subcostal area to the fix the omental area. That actually worked quite nicely to keep the gastrocolic omentum out of the operative field. The 10 mm port site is closed with a grainy needle in ohlxry-dc-[id number] suture of 0 Vicryl. It is of note that portion of the hernia sac had been excised during the procedure I captured that in a retrieval bag and removed that prior to closing the wounds. That was sent as a specimen. Sponge and instrument and needle counts were reported the surgeon to be correct. Blood loss 100 cc. Specimens: Diaphragmatic hernia sac. Drains none. Blood loss 100 cc. The patient was taken the recovery area in satisfied condition without apparent complication Antoine Acevedo M.D., F.A.C.S. Surgeon: Antoine Acevedo Type of Anesthesia: General and Local Anesthesiologist: Bola Liang
[2023-08-14] MEDS: Losartan Potassium 100 MG Tablet PO (13:28)
[2023-08-14] MEDS: Sodium/Calcium/Mag/Potassium 15 ML Bottle RIGHT EYE (13:45)
[2023-08-14] MEDS: Erythromycin Base 1 OPTH.TUBE 1 APPLIC RIGHT EYE (14:34)
[2023-08-14] MEDS: Acetaminophen 325 MG Tablet 650 MG PO (15:15)
== END 2023-08-14 16:44 | disposition home or self-care (01) ==
LOC: SDC 05:20 → AC 05:23
PROVIDERS: PCP Internal Medicine; Referring Provider Surgery; Visit Provider Surgery
PROC: (CPT 43325; principal; 2023-08-14 07:10)
DX: K21.9 Gastro-esophageal reflux disease without esophagitis (principal); I10 Essential (primary) hypertension; Z80.3 Family history of malignant neoplasm of breast; S36.114A Minor laceration of liver, initial encounter; Z87.19 Personal history of other diseases of the digestive system
CPT/HCPCS: 43280; 00790; 36415; 80048; 85027; 88302; 93005; J7120; J0330; J2405

== ENCOUNTER 2023-12-23 22:03 | Emergency (ER) | payer OTHER, SELFPAY ==
[2023-12-23 22:04] VITALS: BP 155/84; PULSE 75; RESP 16; TEMP 36.6; O2SAT 96; BMI 30.7
--- NOTE | 2023-12-23 22:15 | EDS_ITS ---
HPI History of Present Illness HPI Narrative: Patient presents with puncture wound to his right knee that occurred today. Patient states he was working on a fence and the wire fencing snapped and the end of the wire came around and hit him on the lateral aspect of his right knee. Patient states he cleaned it initially. Patient states the bleeding stopped after a few minutes. Patient states that his pain has gotten progressively worse. Patient describes it as aching. Patient states it is worse with any movement or weightbearing. Patient states it is better with ibuprofen. Patient denies any paresthesias or weakness. Patient states his last tetanus was approximately 7 years ago. Patient states the wire was marcial. Chief Complaint: Lower Extremity Injury Informant: patient Occured/Mechanism Mechanism/Context: Yes puncture wound Onset/Context/Timing Onset: Today Context: Sudden Onset Timing: Continuous Quality of Pain: Aching Location: Lateral aspect of right knee Worsened by: Weightbearing, movement Relieved by: Ibuprofen Associated Symptoms Associated Symptoms: Negative for Parasthesia, Weakness or Loss of Funtion Narrative Tetanus Immunization: 5-10 years [facility] Medical History History of echocardiogram Alcohol use Prostate disease History of diverticulosis Non-smoker History of hiatal hernia History of stress test Cardiology follow-up encounter GERD (gastroesophageal reflux disease) HTN (hypertension) MVP (mitral valve prolapse) Hiatal hernia Home Medications ?Medication ?Instructions ?Recorded ?Last Taken ?Type losartan 100 1 tab PO DAILY 03/01/23 08/13/23 History mg-hydrochlorothiazide 25 mg tablet sildenafil (pulm.hypertension) 20 60 mg PO 10/23/23 Unknown History mg tablet cephalexin 500 mg capsule 500 mg PO Q6 #40 CAPSULES 12/23/23 Unknown Rx Allergy/AdvReac Type Severity Reaction Status Date / Time No Known Allergies Allergy Verified 12/23/23 22:06 Family History Mother Breast cancer Surgical History Status post laparoscopic Silvestre fundoplication History of wisdom tooth extraction Hx of colonoscopy Hx of esophagogastroduodenoscopy Social History household members: spouse current occupational status: employed Smoking Status: Never smoker substance use type: does not use ROS ROS ED Constitutional Constitutional ED: Denies chills or fever(s) Eyes Eyes: Denies blurry vision or change in vision ENT ENT ED: Denies rhinorrhea or sore throat Cardiovascular Cardiovascular: Denies chest pain or palpitations Respiratory/Chest Respiratory/Chest: Denies cough or dyspnea Gastrointestinal Gastrointestinal: Denies nausea or vomiting Genitourinary Genitourinary ED: Denies dysuria or hematuria Musculoskeletal Musculoskeletal: Denies back pain or neck pain Integumentary Denies abscess or rash Neurologic Neurologic: Denies headache(s) or weakness Allergic/Immunologic Allergic/Immunologic ED: Denies mouth swelling or urticaria EXAM Physical Exam Const Vital Signs: 12/23/23 22:04 Temperature 97.8 F Temperature Source Temporal Pulse Rate 75 Respiratory Rate 16 Blood Pressure 155/84 H Blood Pressure Mean 107 Pulse Ox 96 Oxygen Delivery Method Room Air Positive well nourished and well developed General Appearance ED: well developed and NAD HEENT Reports moist mucous membranes Neck full ROM and supple Extremity Extremity Narrative: There is mild tenderness over the lateral aspect of the right knee. There is a small puncture wound over this area. There is no active bleeding noted. There is no bony crepitance or step-off noted. There is no joint effusion noted. There is no erythema or warmth noted. There is minimal pain with short arc range of motion. There is some limited range of motion due to pain and extreme flexion and extension. There is no laxity appreciated. Varus and valgus stress test were negative. Guerda's test was negative. Sensation was intact to light touch bilaterally in the lower extremities. Strength is 5/5 bilaterally in the lower extremities. Posterior tibial pulses are equal bilaterally. Neuro oriented x3, CN's II-XII intact bilaterally, moves all extremities and no sensory deficits noted Sensorium / Orientation: alert Motor Exam: strength 5/5 throughout Skin Skin Narrative: There is a small puncture wound over the lateral aspect of the right knee. Ther e is no active bleeding noted. There is no erythema or warmth noted. There is minimal tenderness. MDM MDM MDM Narrative Medical decision making narrative: Differential diagnosis includes retained foreign body, occult fracture, wound infection, and joint effusion. X-rays of the right knee will be obtained to assess for retained foreign body and occult fracture. Radiography Diagnostic Testing: X-rays of the right knee were obtained. There are 4 views. On my independent interpretation, there is no acute fracture. There is no joint effusion noted. There is no metallic foreign body noted. Radiologist also interpreted the x- rays and agrees. Treatment and Re-Evaluation Narrative: Patient was given a dose of Keflex here. Patient was given a tetanus booster. Bacitracin dressing was applied. Patient was given a prescription for Keflex. Patient was instructed to use Tylenol or ibuprofen as needed for pain. Patient was instructed to return to the emergency department if the Tylenol or ibuprofen is not controlling his pain. Patient was also instructed to return if any redness or swelling in the knee or if he has difficulty moving his knee even in a short range of motion. Patient was instructed to follow-up with his primary care physician in 5 to 7 days. Patient understood and was agreeable with the plan. All questions were answered. Discharge Plan Triage Chief Complaint: Lower Extremity Injury ED Provider: Bola Schwartz Dx/Rx/DC Orders Clinical Impression: Puncture wound of knee, right, Hypertension Instructions: ED Puncture Wound (General) Prescriptions: New cephalexin 500 mg capsule 500 mg PO Q6 Qty: 40 0RF No Action losartan-hydrochlorothiazide 100-25 mg tablet 1 tab PO DAILY sildenafil (pulm.hypertension) 20 mg tablet 60 mg PO Primary Care Provider: Jarad Oliver Referrals: Jarad Oliver MD [Primary Care Provider] - 5-7 Days Print Language: Cook Islander Disposition Disposition: Home, Self Care
--- NOTE | 2023-12-23 22:25 | RAD_ITS ---
EXAM: XR RIGHT KNEE COMPLETE, 4 OR MORE VIEWS CLINICAL INDICATION: Injury/Pain TECHNIQUE: Four or more views of the right knee. COMPARISON: No relevant prior studies available. FINDINGS: BONES/JOINTS: Unremarkable. No acute fracture. No subluxation. Normal alignment. Preservation of the joint space. No sclerotic or destructive changes observed. SOFT TISSUES: Unremarkable. No soft tissue swelling or gas. No radiopaque foreign body. RAD/Knee 4 or More Views IMPRESSION: Negative right knee x-rays. Electronically Signed: Raul De Oliveira MD at 22:37 EDT ,
[2023-12-23] MEDS: Cephalexin 500 MG Capsule PO (22:31)
[2023-12-23] MEDS: Diphth,Pertuss(Acell),Tet Vac 0.5 ML Vial IM (22:31)
[2023-12-23 22:59] VITALS: BP 161/83; PULSE 71; RESP 16; TEMP 36.6; O2SAT 99
== END 2023-12-23 23:02 | disposition home or self-care (01) ==
PROVIDERS: Emergency Provider Emergency Medicine; PCP Internal Medicine; Visit Provider Emergency Medicine
DX: S81.031A Puncture wound without foreign body, right knee, initial encounter (principal); I10 Essential (primary) hypertension; W26.8XXA Contact with other sharp object(s), not elsewhere classified, initial encounter; Y93.89 Activity, other specified
CPT/HCPCS: 73564; 90715; 99282